=== PATIENT | male | born 1965 | race Caucasian/White ===

== ENCOUNTER 2016-06-28 10:00 | Outpatient (CLI) | payer OTHER | END 2016-06-28 10:01 | disposition home or self-care (01) | DX: E04.1 Nontoxic single thyroid nodule (principal); Z92.3 Personal history of irradiation; R05 Cough ==

== ENCOUNTER 2016-07-07 09:16 | Outpatient (CLI) | payer OTHER | END 2016-07-07 09:17 | disposition home or self-care (01) | DX: R05 Cough (principal) ==

== ENCOUNTER 2017-03-02 07:12 | Outpatient (CLI) | payer OTHER ==
[2017-03-02 19:10] LABS: BASOPHILS % (AUTO) 0.5 %; EOSINOPHILS % (AUTO) 0.6 %; HCT - HEMATOCRIT 45.7 % (42.0-52.0); HGB - HEMOGLOBIN 15.7 g/dL (14.0-18.0); LYMPHOCYTES # (AUTO) 1.9 10^3/uL (1.5-3.5); LYMPHOCYTES % (AUTO) 31.3 %; MEAN CORPUSCULAR HEMOGLOBIN 31.6 pg (27.0-31.0); MEAN CORPUSCULAR HGB CONC 34.4 g/dL (32.0-36.0); MEAN CORPUSCULAR VOLUME 91.8 fL (80.0-94.0); MEAN PLATELET VOLUME 10.6 fL (7.4-11.4); MONOCYTES # (AUTO) 0.3 10^3/uL (0.0-1.0); MONOCYTES % (AUTO) 5.1 %; NEUTROPHILS # (AUTO) 3.7 10^3/uL (1.5-6.6); NEUTROPHILS % (AUTO) 62.5 %; RED BLOOD COUNT 4.98 10^6/uL (4.70-6.10); RED CELL DISTRIBUTION WIDTH 13.9 % (12.0-15.0)
[2017-03-02 19:37] LABS: ALBUMIN/GLOBULIN RATIO 1.9 (1.0-2.2); BILIRUBIN,TOTAL 1.2 mg/dL (0.2-1.0); BUN - BLOOD UREA NITROGEN 21 mg/dL (6-20); CALCIUM 9.1 mg/dL (8.5-10.3); CARBON DIOXIDE - CO2 30 mmol/L (21-32); CHLORIDE 101 mmol/L (101-111); CHOL/HDL RATIO 4.2 (<5.0); CHOLESTEROL 229 mg/dL; CREATININE 0.9 mg/dL (0.6-1.2); GFR - MDRD 89 (>89); GLUCOSE 103 mg/dL (70-100); HDL CHOLESTEROL 55 mg/dL; LDL/HDL RATIO 2.9 (<3.6); SODIUM 137 mmol/L (135-145); TOTAL PROTEIN 6.6 g/dL (6.7-8.2); TRIGLYCERIDES 68 mg/dL; VLDL CHOLESTEROL 14 mg/dL
== END 2017-03-02 07:13 | disposition home or self-care (01) ==
LOC: LAB.WCP 07:12
PROVIDERS: ATTEND Family Medicine
DX: Z00.00 Encounter for general adult medical examination without abnormal findings (principal); Z12.5 Encounter for screening for malignant neoplasm of prostate; E04.1 Nontoxic single thyroid nodule
CPT/HCPCS: 36415; 80050; 80061; 84153

== ENCOUNTER 2017-03-21 16:28 | Outpatient (CLI) | payer OTHER ==
--- NOTE | 2017-03-22 15:35 | MRI Report ---
EXAM: LEFT ANKLE/HINDFOOT MRI WITHOUT CONTRAST EXAM DATE: 03/21/2017 05:16 PM. CLINICAL HISTORY: Chronic lateral left ankle pain. COMPARISON: Radiographs 03/01/2017. TECHNIQUE: Multiplanar, multisequence T1-weighted and fluid-sensitive sequences of the ankle/hindfoot without contrast. Other: None. FINDINGS: Bones and articular surfaces: No significant ankle joint effusion. Ill-defined osteochondral lesion a t the posteromedial dome of the talus. There is an area of cartilage thinning and fissuring with defo rmity and deficiency of the subchondral bone plate, patchy subchondral edema and some subchondral cys t formation measuring approximately 1.3 cm anteroposterior and 1.0 cm medial to lateral. No obvious d isplaced osteochondral fragment at this time. Ossified portion of a small osteochondral fragment in p lace within the osteochondral lesion approximately 0.6 x 0.5 x 0.15 cm. There is some cartilage thinn ing and fissuring at the calcaneal aspect of the calcaneocuboid joint. Patchy foci of lobulated high T2 signal in the distal calcaneus may represent combination of small intraosseous ganglia as well as distal subchondral cyst formation. Subtalar and talonavicular joints appear normal. Naviculocuneiform and tarsometatarsal joints appear within normal limits. Musculotendinous structures: The Achilles tendon and plantar fascia appear intact. Visualized tibiali s posterior tendon demonstrates small volume of associated fluid. Remaining anterior, posterior and p osterolateral ankle tendons appear normal with no additional significant tendinosis or tenosynovitis. Ligaments: The anterior and posterior talofibular, calcaneofibular and deltoid ligaments appear intac t. Some edema and decreased fat signal within the tarsal sinus. IMPRESSION: 1. Osteochondral lesion at the posteromedial dome of the talus approximately 1.0 x 1.3 cm. 2. 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 3. 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 4. Mild tibialis posterior tenosynovitis. [facility] MUSCULOSKELETAL [facility]IOLOGY SECTION Referring Provider Line: [phone] SITE ID: [id number]
== END 2017-03-21 16:29 | disposition home or self-care (01) ==
LOC: DI 16:28
PROVIDERS: ATTEND Family Medicine
DX: M89.9 Disorder of bone, unspecified (principal); M19.072 Primary osteoarthritis, left ankle and foot; M65.872 Other synovitis and tenosynovitis, left ankle and foot

== ENCOUNTER 2017-07-07 06:55 | Day surgery (SDC) | payer OTHER ==
--- NOTE | 2017-07-07 07:38 | HISTORY & PHYSICAL EXAMINATION ---
HPI - History of Present Illness HPI Comment/Other: Marbin is here today for surviellence EGD. 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 He takes 20 mg Omeprazole daily. He denies dysphagia or odynaphagia. He does not smoke currently but quite 18 years ago and did smoke a pack per day for 20 years. He drinks alcohol approximately 6 days per week - 2 cocktails at a time. He is slightly overweight. His father was diagnosed with esophageal cancer in his late 70's. PMH/PSH - Past Medical History Cardiovascular: positive: Murmur Respiratory: positive: Sleep apnea, CPAP use Endocrine/Autoimmune: positive: None GI: positive: GERD : positive: None HEENT: positive: Chronic hearing loss Psych: positive: None Musculoskeletal: positive: Chronic back pain Derm: positive: None MRSA Hx?: No - Past Surgical History General: positive: EGD Ortho: positive: Shoulder arthroplasty, Other Social & Family Hx - Social History ETOH Use: Wine, Beer, Liquor Meds/Allgy - Home Medications Home Medications: Ambulatory Orders Medication Instructions Recorded Confirmed Esomeprazole Magnesium [Nexium] 1 tab PO DAILY 02/23/16 02/23/16 Ibuprofen [Motrin] 800 mg PO 07/07/17 - Allergies Allergies/Adverse Reactions: Allergies Allergy/AdvReac Type Severity Reaction Status Date / Time Sulfa (Sulfonamide Allergy Unknown Verified 02/23/16 12:33 Antibiotics) Review of Systems - Constitutional Constitutional: denies: Weight loss - Cardiovascular Cariovascular: denies: Palpitations - Respiratory Respiratory: reports: Snoring - Gastrointestinal Gastrointestinal: denies: Abdominal pain - Psychiatric Psychiatric: denies: Depression - Hematologic/Lymphatic Hematologic/Lymphatic: denies: Anemia Exam - Vital Signs Vital Signs: Vital Signs x48h Temp Pulse Resp BP Pulse Ox 07/07/17 07:05 36.2 C L 59 L 16 110/73 97 - Physical Exam General Appearance: positive: No acute distress Respiratory: positive: No respiratory distress, Breath sounds nml Cardiovascular: positive: Regular rate & rhythm Abdomen: positive: Non-tender, No distention Extremities: positive: No pedal edema Neurologic/Psychiatric: positive: Oriented x3 Impression/Plan - Problem List Problem List: History of Quintana's esophagus Will proceed with EGD. Patient understands the procedure and potential risks involved and agrees to proceed.
[2017-07-07] MEDS ORDERED: BENZOCAINE/TETRACAINE/BUTAMBEN SPRAY 56 GM TOP ONE ×2 (08:22→08:40)
[2017-07-07] MEDS ORDERED: LACTATED RINGERS 1,000 ML IV ONE (08:46)
[2017-07-07 09:57] VITALS: BP 114/59
== END 2017-07-07 06:56 | disposition home or self-care (01) ==
LOC: SDS 06:55
PROVIDERS: ATTEND Surgery
PROC: 0DB38ZX Excision of Lower Esophagus, Via Natural or Artificial Opening Endoscopic, Diagnostic (ICD-10-PCS; principal; 2017-07-07 08:15)
DX: K44.9 Diaphragmatic hernia without obstruction or gangrene (principal); Z87.891 Personal history of nicotine dependence; Z80.0 Family history of malignant neoplasm of digestive organs
CPT/HCPCS: 43239; A9270; J7120

== ENCOUNTER 2018-01-31 15:46 | Emergency (ER) | payer OTHER ==
[2018-01-31 16:32] LABS: BASOPHILS % (AUTO) 0.3 %; EOSINOPHILS % (AUTO) 0.1 %; HGB - HEMOGLOBIN 15.6 g/dL (14.0-18.0); LYMPHOCYTES # (AUTO) 0.8 10^3/uL (1.5-3.5); LYMPHOCYTES % (AUTO) 7.9 %; MEAN CORPUSCULAR HEMOGLOBIN 31.6 pg (27.0-31.0); MEAN CORPUSCULAR HGB CONC 35.6 g/dL (32.0-36.0); MEAN CORPUSCULAR VOLUME 88.9 fL (80.0-94.0); MEAN PLATELET VOLUME 8.8 fL (7.4-11.4); MONOCYTES # (AUTO) 0.3 10^3/uL (0.0-1.0); MONOCYTES % (AUTO) 3.5 %; NEUTROPHILS # (AUTO) 8.6 10^3/uL (1.5-6.6); NEUTROPHILS % (AUTO) 88.2 %; PLT - PLATELET COUNT 181 10^3/uL (130-450); RED BLOOD COUNT 4.92 10^6/uL (4.70-6.10); RED CELL DISTRIBUTION WIDTH 14.1 % (12.0-15.0); WHITE BLOOD COUNT 9.8 x10^3/uL (4.8-10.8)
[2018-01-31 16:33] LABS: ALBUMIN 4.1 g/dL (3.2-5.5); ALBUMIN/GLOBULIN RATIO 1.6 (1.0-2.2); BILIRUBIN,TOTAL 1.5 mg/dL (0.2-1.0); CALCIUM 9.1 mg/dL (8.5-10.3); CREATININE 1.3 mg/dL (0.6-1.2); TOTAL PROTEIN 6.6 g/dL (6.7-8.2)
--- NOTE | 2018-01-31 16:49 | ED Physician Documentation ---
PD HPI CHEST PAIN - Stated complaint Stated Complaint: CP/SOA - Chief complaint Chief Complaint: Cardiac - History obtained from History obtained from: Patient, Family - History of Present Illness Timing - onset: Other (several weeks) Timing - onset during: Rest Timing - duration: Minutes (a few seconds to a few minutes) Timing - details: Abrupt onset, Now resolved, Intermittant Pain level max: 3 Pain level now: 0 Quality: Pressure, Tightness, Sharp Location: Substernal, Left chest Radiation: Other (non-radiating) Improved by: Nothing. No: Rest, Oxygen, Nitro, ASA, Antacids, Other medication Worsened by: No: Exertion, Inspiration, Eating, Movement, Palpation, Position Associated symptoms: No: Shortness of air, Diaphoresis, Nausea, Vomiting, Feeling faint / dizzy, General Weakness Recently seen: Clinic (Sent from clinic for to have a troponin drawn) Review of Systems Constitutional: denies: Fever, Chills Nose: denies: Rhinorrhea / runny nose, Congestion Throat: denies: Sore throat Respiratory: denies: Cough, Wheezing GI: denies: Vomiting, Diarrhea Skin: denies: Rash PD PAST MEDICAL HISTORY - Past Medical History Cardiovascular: Murmur Respiratory: Sleep apnea, CPAP use Endocrine/Autoimmune: None GI: GERD : None HEENT: Chronic hearing loss Psych: None Musculoskeletal: Chronic back pain Derm: None - Past Surgical History Past Surgical History: Yes General: EGD Ortho: Shoulder arthroplasty, Other - Present Medications Home Medications: Ambulatory Orders Medication Instructions Recorded Confirmed Esomeprazole Magnesium [Nexium] 1 tab PO DAILY 02/23/16 01/31/18 Ibuprofen [Motrin] 800 mg PO DAILY 07/07/17 01/31/18 predniSONE [Prednisone] 30 mg PO DAILY 01/31/18 01/31/18 - Allergies Allergies/Adverse Reactions: Allergies Allergy/AdvReac Type Severity Reaction Status Date / Time Sulfa (Sulfonamide Allergy Unknown Verified 01/31/18 16:00 Antibiotics) - Social History Smoking Status: Former smoker Does the pt drink ETOH?: Yes Does the pt have substance abuse?: No - Immunizations Immunizations are current?: Yes PD ED PE NORMAL - Vitals Vital signs reviewed: Yes - General General: Alert and oriented X 3, No acute distress - HEENT HEENT: Moist mucous membranes - Neck Neck: Supple, no meningeal sign - Cardiac Cardiac: RRR, Strong equal pulses - Respiratory Respiratory: No respiratory distress, Clear bilaterally - Abdomen Abdomen: Soft, Non tender - Derm Derm: Warm and dry - Extremities Extremities: No edema, No calf tenderness / cord - Neuro Neuro: Alert and oriented X 3 - Psych Psych: Normal mood, Normal affect Results - Vitals Vitals: Vital Signs - 24 hr 01/31/18 01/31/18 01/31/18 15:50 16:30 18:00 Temperature 36.2 C L Heart Rate 75 70 70 Respiratory 18 13 16 Rate Blood Pressure 119/76 126/93 H 126/87 H O2 Saturation 100 97 95 Oxygen O2 Source Room air - EKG (time done) 1553 Rate: Rate (enter#) (71) Rhythm: NSR Rosamond: LAD Intervals: Normal AR QRS: Normal Ischemia: Normal ST segments - Labs Labs: Laboratory Tests 01/31/18 01/31/18 01/31/18 16:05 16:05 16:05 WBC 9.8 RBC 4.92 Hgb 15.6 Hct 43.7 MCV 88.9 MCH 31.6 H MCHC 35.6 RDW 14.1 Plt Count 181 MPV 8.8 Neut # (Auto) 8.6 H Lymph # (Auto) 0.8 L Upson # (Auto) 0.3 Eos # (Auto) 0.0 Baso # (Auto) 0.0 Absolute Nucleated RBC 0.00 Nucleated RBC % 0.0 Sodium 137 Potassium 4.5 Chloride 104 Carbon Dioxide 25 Anion Gap 8.0 BUN 22 H Creatinine 1.3 H Estimated GFR (MDRD) 58 L Glucose 144 H Calcium 9.1 Total Bilirubin 1.5 H AST 17 ALT 19 Alkaline Phosphatase 39 L Troponin I < 0.04 Total Protein 6.6 L Albumin 4.1 Globulin 2.5 Albumin/Globulin Ratio 1.6 Lipase 40 01/31/18 17:53 WBC RBC Hgb Hct MCV MCH MCHC RDW Plt Count MPV Neut # (Auto) Lymph # (Auto) Upson # (Auto) Eos # (Auto) Baso # (Auto) Absolute Nucleated RBC Nucleated RBC % Sodium Potassium Chloride Carbon Dioxide Anion Gap BUN Creatinine Estimated GFR (MDRD) Glucose Calcium Total Bilirubin AST ALT Alkaline Phosphatase Troponin I < 0.04 Total Protein Albumin Globulin Albumin/Globulin Ratio Lipase - Rads (name of study) cxr Radiology: Prelim report reviewed, EMP read contemporaneously, See rad report ( no acute findings) PD MEDICAL DECISION MAKING - ED course Complexity details: reviewed results, re-evaluated patient, considered differential (No ST elevation AL, no aortic dissection, no PE, no tension pneumothorax, no aortic aneurysm), d/w patient, d/w family ED course: Patient is a 52-year-old gentleman with atypical chest pain over the past week. Negative troponin 2. No acute findings on EKG or chest x-ray. Does not appear cardiac at this time. We will have him follow-up with his doctor for further evaluation and care. Patient and family counseled regarding signs and symptoms for which I believe and urgent re-evaluation would be necessary. Patient with good understanding of and agreement to plan and is comfortable going home at this time This document was made in part using voice recognition software. While efforts are made to proofread this document, sound alike and grammatical errors may occur. - Sepsis Event Vital Signs: Vital Signs - 24 hr 01/31/18 01/31/18 01/31/18 15:50 16:30 18:00 Temperature 36.2 C L Heart Rate 75 70 70 Respiratory 18 13 16 Rate Blood Pressure 119/76 126/93 H 126/87 H O2 Saturation 100 97 95 Oxygen O2 Source Room air Departure - Departure Disposition: 01 Home, Self Care Clinical Impression: Chest pain Qualifiers: Chest pain type: unspecified Qualified Code(s): R07.9 - Chest pain, unspecified Condition: Good Instructions: ED Chest Pain Atypical Unkn Cause Follow-Up: Richi Bhatti DO [Primary Care Provider] - Within 1 week Comments: Your tests are normal today. Return if you worsen. Follow-up with your doctor for further care. Discharge Date/Time: 01/31/18 18:24
--- NOTE | 2018-01-31 17:04 | XRAY Report ---
Procedure Date: 01/31/2018 Accession Number: [id number] / [id number] Procedure: XR - Chest 2 View X-Ray CPT Code: 02535 FULL RESULT: EXAM: CHEST RADIOGRAPHY EXAM DATE: 01/31/2018 04:39 PM. CLINICAL HISTORY: Chest pain x 1 week. COMPARISON: 06/28/2016 TECHNIQUE: 2 views. FINDINGS: Lungs/Pleura: No focal opacities evident. No pleural effusion. No pneumothorax. Normal volumes. Mediastinum: Heart and mediastinal contours are unremarkable. Other: Negative bony structures IMPRESSION: Negative 2-view chest radiography for acute findings or significant change since 06/28/2016. [facility]
[2018-01-31 18:08] VITALS: BP 126/87
== END 2018-01-31 18:24 | disposition home or self-care (01) ==
LOC: ED 15:46
DX: R07.9 Chest pain, unspecified (principal); Z87.891 Personal history of nicotine dependence
CPT/HCPCS: 36415; 71046; 80053; 83690; 84484; 85025; 93005; 99283

== ENCOUNTER 2018-03-17 03:46 | Outpatient (CLI) | payer OTHER | END 2018-03-17 03:47 | disposition critical access hospital (66) | LOC: EMS 03:46 | PROVIDERS: ATTEND Surgery | DX: R10.9 Unspecified abdominal pain (principal); R11.0 Nausea; W19.XXXA Unspecified fall, initial encounter; Y92.002 Bathroom of unspecified non-institutional (private) residence as the place of occurrence of the external cause | CPT/HCPCS: A0425; A0429 ==

== ENCOUNTER 2018-03-17 03:59 | Emergency (ER) | payer OTHER ==
--- NOTE | 2018-03-17 04:21 | ED Physician Documentation ---
History of Present Illness - Stated complaint Stated Complaint: WEAKNESS - Chief complaint Chief Complaint: General - History obtained from History obtained from: Patient - History of Present Illness Timing: Today - Additonal information Additional information: patient is a 52 year old male with a history of polymyalgia rheumatica on prednisone and methotrexate who is presenting to the emergency department for nausea, generalized weakness and diaphoresis. Patient states that he woke up from sleep feeling nauseated. He went to take off his cpap and was sweating. Patient got up to go to the bathroom and felt like he might pass out. patient hit his head on the door frame and then sat down in front of the toilet. patient states he was sweating profusely at that time. patient then had a bowel movement and states that it felt like it could be diarrhea. patient states that he felt queasy after that episode. family called ems. patient refused zofran enroute stating his nausea was not that bad. Patient reports that his last meal was at a [employer] restaurant this evening. Review of Systems Constitutional: reports: Sweats Eyes: denies: Decreased vision, Photophobia Cardiac: denies: Chest pain / pressure PD PAST MEDICAL HISTORY - Past Medical History Cardiovascular: Murmur Respiratory: Sleep apnea, CPAP use Endocrine/Autoimmune: None GI: GERD : None HEENT: Chronic hearing loss Psych: None Musculoskeletal: Chronic back pain Derm: None - Past Surgical History Past Surgical History: Yes General: EGD Ortho: Shoulder arthroplasty, Other - Present Medications Home Medications: Ambulatory Orders Medication Instructions Recorded Confirmed Esomeprazole Magnesium [Nexium] 1 tab PO DAILY 02/23/16 01/31/18 Ibuprofen [Motrin] 800 mg PO DAILY 07/07/17 01/31/18 predniSONE [Prednisone] 30 mg PO DAILY 01/31/18 01/31/18 Ondansetron Odt [Zofran] 4 mg TL Q6H PRN #14 tablet 03/17/18 - Allergies Allergies/Adverse Reactions: Allergies Allergy/AdvReac Type Severity Reaction Status Date / Time Sulfa (Sulfonamide Allergy Unknown Verified 03/17/18 04:06 Antibiotics) - Social History Smoking Status: Former smoker Does the pt drink ETOH?: Yes Does the pt have substance abuse?: No - Immunizations Immunizations are current?: Yes PD ED PE NORMAL - General General: Alert and oriented X 3, No acute distress - HEENT HEENT: Atraumatic - Cardiac Cardiac: RRR - Respiratory Respiratory: No respiratory distress - Abdomen Abdomen: Soft, Non distended - Derm Derm: Normal color, Warm and dry - Extremities Extremities: No deformity - Neuro Neuro: Alert and oriented X 3, systems coordinator 2-12 intact, No motor deficit, Normal speech Eye Opening: Spontaneous Motor: Obeys Commands Verbal: Oriented GCS Score: 15 Results - Vitals Vitals: Vital Signs - 24 hr 03/17/18 04:02 Temperature 36.1 C L Heart Rate 68 Respiratory 10 L Rate Blood Pressure 119/81 H O2 Saturation 98 Oxygen O2 Source Room air - EKG (time done) 0404 Rate: Rate (enter#) (65) Rhythm: NSR Irvona: Normal Intervals: Normal GA QRS: Normal Ischemia: ST elevation c/w repol Compare to prior EKG: Unchanged from prior EKG PD MEDICAL DECISION MAKING - ED course Complexity details: reviewed old records, reviewed results, re-evaluated patient, considered differential, d/w patient ED course: Patient was seen and examined at bedside. patient was well appearing and continued to state that he did not need any zofran. ekg was performed and was unchanged from his previous ekg. labs were drawn. when patient's diagnostics came back they were all within normal limits. Patient remained well appearing with only some minor "queasiness" Patient required no further inpatient work up at this time and was stable for discharge with outpatient follow up. - Sepsis Event Vital Signs: Vital Signs - 24 hr 03/17/18 04:02 Temperature 36.1 C L Heart Rate 68 Respiratory 10 L Rate Blood Pressure 119/81 H O2 Saturation 98 Oxygen O2 Source Room air Departure - Departure Disposition: 01 Home, Self Care Clinical Impression: Syncope, near Condition: Good Instructions: ED Near Syncope Unkn Follow-Up: primary,care provider [Other] - As Needed Prescriptions: Ondansetron Odt [Zofran] 4 mg TL Q6H PRN #14 tablet PRN Reason: Nausea / Vomiting Comments: Your diagnostics today were within normal limits. It is difficult to say what exactly happened. It could be food poisoning or vaso vagal near syncope. Make sure you take the zofran for nausea and stay well hydrated. You should follow up with your doctor if your symptoms persist. You may return to the emergency at any time for new, worsening or uncontrollable symptoms.
[2018-03-17 04:30] LABS: BASOPHILS % (AUTO) 0.3 %; EOSINOPHILS % (AUTO) 0.3 %; HGB - HEMOGLOBIN 15.1 g/dL (14.0-18.0); LYMPHOCYTES # (AUTO) 1.9 10^3/uL (1.5-3.5); LYMPHOCYTES % (AUTO) 25.3 %; MEAN CORPUSCULAR HEMOGLOBIN 31.6 pg (27.0-31.0); MEAN CORPUSCULAR VOLUME 90.2 fL (80.0-94.0); MEAN PLATELET VOLUME 8.4 fL (7.4-11.4); MONOCYTES # (AUTO) 0.4 10^3/uL (0.0-1.0); MONOCYTES % (AUTO) 5.8 %; NEUTROPHILS # (AUTO) 5.1 10^3/uL (1.5-6.6); NEUTROPHILS % (AUTO) 68.3 %; PLT - PLATELET COUNT 161 10^3/uL (130-450); RED BLOOD COUNT 4.79 10^6/uL (4.70-6.10); RED CELL DISTRIBUTION WIDTH 14.2 % (12.0-15.0); WHITE BLOOD COUNT 7.5 x10^3/uL (4.8-10.8)
[2018-03-17 04:37] LABS: ALBUMIN 3.8 g/dL (3.2-5.5); ALBUMIN/GLOBULIN RATIO 1.5 (1.0-2.2); BILIRUBIN,TOTAL 0.8 mg/dL (0.2-1.0); CALCIUM 8.5 mg/dL (8.5-10.3); TOTAL PROTEIN 6.3 g/dL (6.7-8.2)
[2018-03-17 05:13] VITALS: BP 123/77
== END 2018-03-17 05:13 | disposition home or self-care (01) ==
LOC: EDUNIT# → ED 03:59
DX: R55 Syncope and collapse (principal); M35.3 Polymyalgia rheumatica; Z92.241 Personal history of systemic steroid therapy
CPT/HCPCS: 36415; 80053; 83690; 84484; 85025; 87275; 87276; 93005; 99284

== ENCOUNTER 2018-04-10 09:19 | Outpatient (CLI) | payer OTHER | END 2018-04-10 09:20 | disposition home or self-care (01) | LOC: DI 09:19 | PROVIDERS: ATTEND Family Medicine | DX: R55 Syncope and collapse (principal); R07.89 Other chest pain; I51.7 Cardiomegaly | CPT/HCPCS: 93306 ==

== ENCOUNTER 2018-07-01 09:13 | Outpatient (CLI) | payer OTHER | END 2018-07-01 09:14 | disposition home or self-care (01) | LOC: DI 09:13 | PROVIDERS: ATTEND Internal Medicine Cardiovascular Disease | DX: Q24.8 Other specified congenital malformations of heart (principal); R55 Syncope and collapse; I51.7 Cardiomegaly | CPT/HCPCS: 93308 ==

== ENCOUNTER 2018-07-19 08:54 | Outpatient (CLI) | payer OTHER ==
[2018-07-19] MEDS ORDERED: REGADENOSON 0.4 MG/5 ML SYRINGE IVP ONE ×2 (10:13→11:53)
--- NOTE | 2018-07-19 12:32 | CARDIAC PROCEDURE NOTE ---
DATE OF SERVICE: 07/19/2018 Physician: Andria De León MD, [facility] INDICATION: Syncope. CARDIAC RISK FACTORS 1. Male gender. 2. Family history of heart disease. PROCEDURE: After signing informed consent, the patient underwent a Lexiscan stress test with nuclear myocardial perfusion imaging. RESTING HEART RATE: 63. Peak heart rate: 83. RESTING BLOOD PRESSURE: 132/80. Peak blood pressure: 160/70. Lexiscan was infused per protocol. The patient developed flushing and mild shortness of breath that resolved spontaneously after 4 minutes. The patient had no chest pain or nausea. RESTING EKG: Normal sinus rhythm, left atrial enlargement, left anterior fascicular block, poor R-wave progression. EKG AT [facility]: No new ST segment or T-wave changes. SUMMARY 1. Abnormal resting EKG. 2. No ischemic changes by EKG criteria on this pharmaceutical stress test. 3. Nuclear images reported separately. cc: Balbir Bonilla MD TD: 07/19/2018 12:05 MTDD
--- NOTE | 2018-07-19 16:36 | Nuclear Medicine Report ---
Reason: OUTFLOW TRACT OBSTRUCTION, SYNCOPE Procedure Date: 07/19/2018 Accession Number: [id number] / [id number] Procedure: NM - Myocardial Perfusion STR/RST CPT Code: FULL RESULT: EXAM: SINGLE-ISOTOPE PHARMACOLOGICAL STRESS TEST WITH REGADENOSON. SINGLE-ISOTOPE AND ONE-DAY REST/STRESS MYOCARDIAL PERFUSION SCANS WITH TOMOGRAPHIC IMAGING, QUANTITATIVE ANALYSIS, WALL MOTION ANALYSIS AND CALCULATION OF EJECTION FRACTION. EXAM DATE: 07/19/2018 04:09 PM. CLINICAL HISTORY: OUTFLOW TRACT OBSTRUCTION, SYNCOPE. COMPARISON: None available. TECHNIQUE: After the intravenous administration of 9.9 mCi of Tc-99m sestamibi, a rest myocardial perfusion scan was done with tomography. Motion correction was applied when appropriate. After an appropriate delay, pharmacological stress was performed with the infusion of 0.4 mg regadenoson per protocol. According to protocol, 41.4 mCi of Tc-99m sestamibi was injected for stress myocardial perfusion scan. Motion correction was applied when appropriate. Gated tomographic images were obtained for wall motion analysis and computation of left ventricular ejection fraction. FINDINGS: On visual analysis, there are partially fixed and partially reversible perfusion defects in the anterior and inferolateral lny. Computer analysis. Summed stress score 11 Summed rest score 7 Summed difference score 4 Wall motion analysis demonstrates inferoseptal hypokinesis. The left ventricular end-diastolic volume is 92 cc. The left ventricular end-systolic volume is 28 cc. The left ventricular ejection fraction is calculated to be 70%. IMPRESSION: 1. Moderate severity partially fixed and partially reversible anterior and inferolateral perfusion defects. 2. Left ventricular ejection fraction of 70%. 3. Inferoseptal hypokinesis. 4. Normal left ventricular cavity size, no change with stress. 5. Based on computer analysis, moderately abnormal study with mild ischemia. [facility]
== END 2018-07-19 08:55 | disposition home or self-care (01) ==
LOC: DI 08:54
PROVIDERS: ATTEND Internal Medicine Cardiovascular Disease
DX: Q24.8 Other specified congenital malformations of heart (principal); R55 Syncope and collapse; R06.02 Shortness of breath; R94.31 Abnormal electrocardiogram [ECG] [EKG]
CPT/HCPCS: 78452; 93017; A9500; J2785

== ENCOUNTER 2019-04-27 10:35 | Outpatient (CLI) | payer OTHER | END 2019-04-27 23:59 | disposition home or self-care (01) | LOC: LAB.WCP 10:35 | PROVIDERS: ATTEND Family Medicine | DX: M35.3 Polymyalgia rheumatica (principal) | CPT/HCPCS: 36415; 85651; 86140 ==

== ENCOUNTER 2019-09-22 12:53 | Emergency (ER) | payer OTHER ==
--- NOTE | 2019-09-22 13:01 | ED Physician Documentation ---
PD HPI UPPER EXT INJURY - Stated complaint Stated Complaint: RT SHOULDER PX - Chief complaint Chief Complaint: Trauma Ext - History obtained from History obtained from: Patient - History of Present Illness Location: Right, Shoulder Type of injury: Fall (He was changed sign limbs from a tree while up on a ladder. He reached for a branch with the chainsaw and the ladder rocked and he fell down about 15 feet landing on some branches on his right shoulder. He denies injury to the head or neck. He has some mild tenderness in the lateral ribs but no pain with breathing. His main injury is the right shoulder along the collarbone and scapula.) Where injury occurred: Home Timing - onset: How many hours ago (1), Today Timing - details: Abrupt onset, Still present Worsened by: Moving, Palpating Associated symptoms: Swelling (right hand, but feels he might have struck that separately.). No: Weakness, Numbness Similar symptoms before: Has not had sx before Review of Systems Cardiac: denies: Chest pain / pressure Respiratory: denies: Dyspnea GI: denies: Abdominal Pain Skin: denies: Abrasion (s), Laceration (s) Musculoskeletal: denies: Neck pain, Back pain Neurologic: denies: Focal weakness, Numbness, Altered mental status, Headache, LOC PD PAST MEDICAL HISTORY - Past Medical History Cardiovascular: Murmur Respiratory: Sleep apnea, CPAP use Endocrine/Autoimmune: None GI: GERD : None HEENT: Chronic hearing loss Psych: None Musculoskeletal: Chronic back pain Derm: None - Past Surgical History Past Surgical History: Yes General: EGD Ortho: Shoulder arthroplasty, Other - Present Medications Home Medications: Ambulatory Orders Medication Instructions Recorded Confirmed Esomeprazole Magnesium [Nexium] 1 tab PO DAILY 02/23/16 01/31/18 Ibuprofen [Motrin] 800 mg PO DAILY 07/07/17 01/31/18 predniSONE [Prednisone] 30 mg PO DAILY 01/31/18 01/31/18 Ondansetron Odt [Zofran] 4 mg TL Q6H PRN #14 tablet 03/17/18 Hydrocodone/Acetaminophen 1 each PO Q6H PRN #14 tablet 09/22/19 [Hydrocodon-Acetaminophen 5-325] Meloxicam [Mobic] 7.5 mg PO BID PRN #20 tablet 09/22/19 Tizanidine HCl 4 mg PO TID PRN #25 capsule 09/22/19 - Allergies Allergies/Adverse Reactions: Allergies Allergy/AdvReac Type Severity Reaction Status Date / Time Sulfa (Sulfonamide Allergy Unknown Verified 09/22/19 12:55 Antibiotics) - Social History Does the pt smoke?: No Smoking Status: Former smoker Does the pt drink ETOH?: Yes Does the pt have substance abuse?: No - Immunizations Immunizations are current?: Yes - POLST Patient has POLST: No PD ED PE NORMAL - Vitals Vital signs reviewed: Yes - General General: Alert and oriented X 3, Well developed/nourished, Other (He is guarding range of motion of the right shoulder.) - HEENT HEENT: Atraumatic - Neck Neck: Supple, no meningeal sign, No bony TTP, No adenopathy - Cardiac Cardiac: RRR, No murmur - Respiratory Respiratory: Clear bilaterally, Other (Mild chest wall tenderness along the mid axillary line on the right side. No crepitance. He is able to take a good deep breath without hurting.) - Derm Derm: Normal color, Warm and dry - Extremities Extremities: Other (There is a little bit of swelling in the right hand and dorsum wrist, with faint bruising, but no bony tenderness nor deformity. He has good automation technologist. There is tenderness along the AC joint and the distal clavicle and also on the posterior suprascapular area. Palpation of the inferior aspect of the scapula and rotating the scapula do not cause pain. There is no tenderness in the proximal humerus per se. Limited range of motion due to discomfort. There is no palpable dislocation.) - Neuro Neuro: Alert and oriented X 3, No motor deficit, No sensory deficit Eye Opening: Spontaneous Motor: Obeys Commands Verbal: Oriented GCS Score: 15 Results - Vitals Vitals: Vital Signs - 24 hr 09/22/19 12:56 Temperature 36.5 C Heart Rate 63 Respiratory 16 Rate Blood Pressure 123/86 H O2 Saturation 98 Oxygen O2 Source Room air - Rads (name of study) right shoulder Radiology: Prelim report reviewed, EMP read contemporaneously (slight step of the AC, consider mild separation. No noted fractures. ), See rad report PD MEDICAL DECISION MAKING - ED course Complexity details: reviewed results, considered differential, d/w patient Departure - Departure Disposition: 01 Home, Self Care Clinical Impression: Fall from ladder Qualifiers: Encounter type: initial encounter Qualified Code(s): W11.XXXA - Fall on and from ladder, initial encounter Right shoulder strain Qualifiers: Encounter type: initial encounter Qualified Code(s): S46.911A - Strain of unspecified muscle, fascia and tendon at shoulder and upper arm level, right arm, initial encounter Acromioclavicular (AC) joint injury Qualifiers: Encounter type: initial encounter Laterality: right Qualified Code(s): S49.91XA - Unspecified injury of right shoulder and upper arm, initial encounter Condition: Stable Record reviewed to determine appropriate education?: Yes Instructions: ED Sprain AC Joint, ED Sprain Shoulder Follow-Up: Richi Bhatti DO [Primary Care Provider] - Leodan Zuniga DO [Physician No Access] - Prescriptions: Hydrocodone/Acetaminophen [Hydrocodon-Acetaminophen 5-325] 1 each PO Q6H PRN #14 tablet PRN Reason: pain Meloxicam [Mobic] 7.5 mg PO BID PRN #20 tablet PRN Reason: Pain Tizanidine HCl 4 mg PO TID PRN #25 capsule PRN Reason: Spasms Comments: Use the sling for protecting the shoulder motion for several days to a week or 2 as needed for discomfort. Gentle range of motion several times a day however so you do not get stiff in the shoulder joint. Presumably there is some strain of the muscles around the scapula and shoulder there may be some separation of the ligament at the AC joint. No overhead reaching, push pull, heavy lifting for 2 to 3 weeks until it feels well-healed. Anti-inflammatory such as meloxicam naproxen or ibuprofen twice daily for the next several days to week with food. Add Tylenol if needed for pains, or hydrocodone for worse pain. Use tizanidine if needed for muscle stiffness and spasms. Recheck with your primary care or orthopedics if not improving well over the next week to the point of reasonable range of motion without much pain.
[2019-09-22 14:50] VITALS: BP 126/80
--- NOTE | 2019-09-22 15:32 | XRAY Report ---
Reason: fall from ladder Procedure Date: 09/22/2019 Accession Number: [id number] / [id number] Procedure: XR - Shoulder 3 View RT CPT Code: Final Report FULL RESULT: EXAM: RIGHT SHOULDER RADIOGRAPHY EXAM DATE: 09/22/2019 02:16 PM. CLINICAL HISTORY: Fall from ladder. COMPARISON: None. TECHNIQUE: 3 views. FINDINGS: Bones: Normal. No fracture or bone lesion. Joints: No dislocation. Widened acromioclavicular joint. Soft tissues: The visualized hemithorax is unremarkable. No soft tissue calcification. IMPRESSION: Widened acromioclavicular joint, acromioclavicular joint injury versus postop, otherwise unremarkable shoulder radiography. RADIA
== END 2019-09-22 14:50 | disposition home or self-care (01) ==
LOC: ED 12:53
DX: S49.91XA Unspecified injury of right shoulder and upper arm, initial encounter (principal); S46.911A Strain of unspecified muscle, fascia and tendon at shoulder and upper arm level, right arm, initial encounter; W11.XXXA Fall on and from ladder, initial encounter; Y93.H2 Activity, gardening and landscaping; Y92.009 Unspecified place in unspecified non-institutional (private) residence as the place of occurrence of the external cause; Z87.891 Personal history of nicotine dependence
CPT/HCPCS: 99283; 99284

== ENCOUNTER 2019-10-27 17:41 | Emergency (ER) | payer OTHER ==
[2019-10-27] MEDS ORDERED: predniSONE 20 MG TABLET PO STA (18:02)
--- NOTE | 2019-10-27 18:07 | ED Physician Documentation ---
PD HPI SKIN - Stated complaint Stated Complaint: RASH - Chief complaint Chief Complaint: Allergic Rx - History obtained from History obtained from: Patient - History of Present Illness Timing - onset: How many days ago (several days) Timing - duration: Days Timing - details: Gradual onset Pain level max: 0 Pain level now: 0 Location: Bodywide Quality / character: Itchy Improved by: Benadryl Worsened by (comment): COMMENT (nothing) Associated symptoms: No: Fever, Myalgias, Joint pain, Headache, Facial swelling, Dyspnea, Abd pain, N/V/D, Urinary sx Contributing factors: Unknown. No: Exposed to medication, Exposed to food, Exposed to soap / lotion, Exposed to Poison ariana/oak, Insect bite /sting, Recent illness Recently seen: Not recently seen Review of Systems Constitutional: denies: Fever, Chills Cardiac: denies: Chest pain / pressure Respiratory: denies: Cough GI: denies: Nausea, Vomiting, Diarrhea Musculoskeletal: denies: Neck pain, Back pain Neurologic: denies: Headache PD PAST MEDICAL HISTORY - Past Medical History Cardiovascular: Murmur Respiratory: Sleep apnea, CPAP use Endocrine/Autoimmune: None GI: GERD : None HEENT: Chronic hearing loss Psych: None Musculoskeletal: Chronic back pain Derm: None - Past Surgical History Past Surgical History: Yes General: EGD Ortho: Shoulder arthroplasty, Other - Present Medications Home Medications: Ambulatory Orders Medication Instructions Recorded Confirmed Esomeprazole Magnesium [Nexium] 1 tab PO DAILY 02/23/16 01/31/18 Ibuprofen [Motrin] 800 mg PO DAILY 07/07/17 01/31/18 predniSONE [Prednisone] 30 mg PO DAILY 01/31/18 01/31/18 Ondansetron Odt [Zofran] 4 mg TL Q6H PRN #14 tablet 03/17/18 Hydrocodone/Acetaminophen 1 each PO Q6H PRN #14 tablet 09/22/19 [Hydrocodon-Acetaminophen 5-325] Meloxicam [Mobic] 7.5 mg PO BID PRN #20 tablet 09/22/19 Tizanidine HCl 4 mg PO TID PRN #25 capsule 09/22/19 predniSONE [Deltasone] 10 mg PO [id number] #42 tab 10/27/19 - Allergies Allergies/Adverse Reactions: Allergies Allergy/AdvReac Type Severity Reaction Status Date / Time Sulfa (Sulfonamide Allergy Unknown Verified 09/22/19 12:55 Antibiotics) - Social History Does the pt smoke?: No Smoking Status: Never smoker Does the pt drink ETOH?: Yes Does the pt have substance abuse?: No - Immunizations Immunizations are current?: Yes - POLST Patient has POLST: No PD ED PE NORMAL - Vitals Vital signs reviewed: Yes - General General: Alert and oriented X 3, No acute distress - HEENT HEENT: Moist mucous membranes - Neck Neck: Supple, no meningeal sign - Cardiac Cardiac: RRR - Respiratory Respiratory: No respiratory distress, Clear bilaterally - Derm Derm: Warm and dry, Other (Diffuse body wide maculopapular exanthem. Blanches easily. No vesicles. No pustules.) - Neuro Neuro: Alert and oriented X 3 Results - Vitals Vitals: Vital Signs - 24 hr 10/27/19 10/27/19 17:47 18:18 Temperature 36.7 C 36.7 C Heart Rate 67 65 Respiratory 16 16 Rate Blood Pressure 107/57 L 108/62 O2 Saturation 98 99 Oxygen O2 Source Room air PD MEDICAL DECISION MAKING - ED course Complexity details: considered differential, d/w patient ED course: Patient with dermatitis of unclear etiology. Will place on steroids. No airway involvement. Patient counseled regarding signs and symptoms for which I believe and urgent re-evaluation would be necessary. Patient with good understanding of and agreement to plan and is comfortable going home at this time This document was made in part using voice recognition software. While efforts are made to proofread this document, sound alike and grammatical errors may occur. Departure - Departure Disposition: 01 Home, Self Care Clinical Impression: Dermatitis Condition: Good Instructions: ED Dermatitis Non Specific Rash Follow-Up: Richi Bhatti DO [Primary Care Provider] - Within 1 week Prescriptions: predniSONE [Deltasone] 10 mg PO [id number] #42 tab Comments: The cause of your symptoms is unclear today. Take the steroids as prescribed. Return if you worsen. Follow-up with your doctor for further care. Discharge Date/Time: 10/27/19 18:19
[2019-10-27 18:19] VITALS: BP 108/62
== END 2019-10-27 18:19 | disposition home or self-care (01) ==
LOC: ED 17:41
DX: L30.9 Dermatitis, unspecified (principal); R06.02 Shortness of breath
CPT/HCPCS: 71046; 99282; 99284; J7512

== ENCOUNTER 2019-10-27 18:19 | Outpatient (CLI) | payer OTHER ==
--- NOTE | 2019-10-28 03:59 | XRAY Report ---
Reason: SHORTNESS OF BREATH Procedure Date: 10/27/2019 Accession Number: [id number] / [id number] Procedure: XR - Chest 2 View X-Ray CPT Code: 73949 Final Report FULL RESULT: EXAM: CHEST RADIOGRAPHY EXAM DATE: 10/27/2019 06:37 PM. CLINICAL HISTORY: SHORTNESS OF BREATH. COMPARISON: CHEST 2 VIEW 01/31/2018 4:30 PM. TECHNIQUE: 2 views. FINDINGS: Lungs/Pleura: No focal opacities evident. No pleural effusion. No pneumothorax. Normal volumes. Mediastinum: Heart and mediastinal contours are unremarkable. Other: None. IMPRESSION: Normal 2-view chest radiography. RAD[facility]
== END 2019-10-27 18:20 | disposition home or self-care (01) ==
LOC: DI 18:19
PROVIDERS: ATTEND Internal Medicine Cardiovascular Disease
DX: R06.02 Shortness of breath (principal)
CPT/HCPCS: 71046

== ENCOUNTER 2020-04-18 12:05 | Outpatient (CLI) | payer OTHER ==
--- NOTE | 2020-04-18 17:24 | Ultrasound Report ---
PROCEDURE: Chest INDICATIONS: LIPOMA OF CHEST WALL TECHNIQUE: Real-time scanning was performed, and a suitable site was marked by the completion supervisor for thoracentesis to be performed by the referring clinician. COMPARISON: None. FINDINGS: Two hypoechoic solid nodules are seen in the palpable area of concern in the left supraclavicular reg ion, measuring 6 x 5 x 6 mm and 4 x 3 x 4 mm respectively with central vascularity. Findings likely r epresent small lymph nodes, but no definite fatty hilum is seen. IMPRESSION: Two hypoechoic hypervascular solid nodules are seen corresponding to the palpable area of concern in the left supraclavicular region measuring 6 mm and 4 mm respectively. Findings may represent prominen t supraclavicular lymph nodes, without definite fatty hilum. Recommend clinical correlation for recen t infection or any known malignancy. CT chest may be obtained to further evaluate for lymphadenopathy if indicated. Reviewed by: Paul Pate MD on 04/18/2020 5:23 PM PST Approved by: Paul Pate MD on 04/18/2020 5:23 PM PST Station ID: [id number]
== END 2020-04-18 12:06 | disposition home or self-care (01) ==
LOC: DI 12:05
PROVIDERS: ATTEND Physician Assistant
DX: D17.1 Benign lipomatous neoplasm of skin and subcutaneous tissue of trunk (principal)
CPT/HCPCS: 76604

== ENCOUNTER 2020-05-05 08:38 | Outpatient (CLI) | payer OTHER ==
[2020-05-05 08:59] LABS: BASOPHILS % (AUTO) 0.7 %; EOSINOPHILS # (AUTO) 0.1 10^3/uL (0.0-0.7); EOSINOPHILS % (AUTO) 2.6 %; LYMPHOCYTES # (AUTO) 1.8 10^3/uL (1.5-3.5); LYMPHOCYTES % (AUTO) 41.8 %; MEAN CORPUSCULAR HEMOGLOBIN 29.9 pg (27.0-31.0); MEAN CORPUSCULAR HGB CONC 34.8 g/dL (32.0-36.0); MEAN PLATELET VOLUME 10.2 fL (7.4-11.4); MONOCYTES # (AUTO) 0.3 10^3/uL (0.0-1.0); MONOCYTES % (AUTO) 7.7 %; PLT - PLATELET COUNT 169 10^3/uL (130-450); RED BLOOD COUNT 5.01 10^6/uL (4.70-6.10); RED CELL DISTRIBUTION WIDTH 13.4 % (12.0-15.0); WHITE BLOOD COUNT 4.3 x10^3/uL (4.8-10.8)
[2020-05-05 09:29] LABS: ALBUMIN 3.9 g/dL (3.2-5.5); ALBUMIN/GLOBULIN RATIO 1.5 (1.0-2.2); ALKALINE PHOSPHATASE 71 IU/L (42-121); ALT ALANINE AMINOTRANSFERASE 25 IU/L (10-60); AST ASPARTATE AMINOTRANSFERASE 22 IU/L (10-42); BILIRUBIN,TOTAL 1.3 mg/dL (0.2-1.0); BUN - BLOOD UREA NITROGEN 21 mg/dL (6-20); CALCIUM 9.1 mg/dL (8.5-10.3); CARBON DIOXIDE - CO2 28 mmol/L (21-32); CHLORIDE 103 mmol/L (101-111); CHOLESTEROL 165 mg/dL; CREATININE 1.1 mg/dL (0.6-1.2); GLUCOSE 112 mg/dL (70-100); HDL CHOLESTEROL 41 mg/dL; LDL CHOLESTEROL,CALCULATED 110 mg/dL; LDL/HDL RATIO 2.7 (<3.6); SODIUM 139 mmol/L (135-145); TOTAL PROTEIN 6.5 g/dL (6.7-8.2); VLDL CHOLESTEROL 14 mg/dL
== END 2020-05-05 08:39 | disposition home or self-care (01) ==
LOC: LAB 08:38
PROVIDERS: ATTEND Family Medicine
DX: Z12.5 Encounter for screening for malignant neoplasm of prostate (principal); Z95.2 Presence of prosthetic heart valve; I42.2 Other hypertrophic cardiomyopathy; M35.3 Polymyalgia rheumatica; E78.5 Hyperlipidemia, unspecified
CPT/HCPCS: 36415; 80053; 80061; 83721; 84153; 84443; 85025

== ENCOUNTER 2020-11-14 10:32 | Outpatient (CLI) | payer OTHER | END 2020-11-14 10:33 | disposition home or self-care (01) | LOC: LAB 10:32 | PROVIDERS: ATTEND Surgery | DX: Z01.812 Encounter for preprocedural laboratory examination (principal); K22.70 Barrett's esophagus without dysplasia; I42.9 Cardiomyopathy, unspecified; G47.30 Sleep apnea, unspecified; Z20.822 Contact with and (suspected) exposure to COVID-19 ==

== ENCOUNTER 2020-11-18 10:21 | Day surgery (SDC) | payer OTHER ==
[2020-11-18] MEDS ORDERED: LACTATED RINGERS 1,000 ML IV ONE ×2 (10:27→12:19)
[2020-11-18] MEDS ORDERED: LIDOCAINE-MPF 2% 5 ML VIAL ONE (11:14)
[2020-11-18] MEDS ORDERED: PROPOFOL 200 MG/20 ML VIAL IVP ONE (11:14)
[2020-11-18] MEDS ORDERED: KETAMINE 500 MG/10 ML VIAL ONE (11:14)
[2020-11-18] MEDS ORDERED: MIDAZOLAM 2 MG/2 ML VIAL ONE (11:14)
--- NOTE | 2020-11-18 11:15 | ANESTHESIA ---
Pre-Anesthesia VS, & Labs - Diagnosis hx of andres's - Procedure EGD Vital Signs: Temp Pulse Resp BP Pulse Ox 36.2 C L 66 12 104/57 L 99 11/18/20 10:28 11/18/20 10:28 11/18/20 10:28 11/18/20 10:28 11/18/20 10:28 Height: 5 ft 7 in Weight (kg): 84.3 kg Body Mass Index: 29.1 BMI Classification: Overweight - NPO >8 hours Home Medications and Allergies Home Medications: Ambulatory Orders Methotrexate Inj [Methotrexate] 0.4 mg SQ ONCE 11/17/20 Metoprolol Tartrate [Lopressor] 50 mg PO DAILY 11/17/20 Omeprazole [PriLOSEC] 20 mg PO BID 11/17/20 Aspirin [Aspirin EC] 81 mg PO DAILY 11/18/20 Multivitamin 1 each PO BID 11/18/20 Rosuvastatin Calcium [Crestor] 40 mg PO DAILY 11/18/20 Methotrexate Inj [Methotrexate] 0.4 mg SQ ONCE 11/17/20 Metoprolol Tartrate [Lopressor] 50 mg PO DAILY 11/17/20 Omeprazole [PriLOSEC] 20 mg PO BID 11/17/20 Aspirin [Aspirin EC] 81 mg PO DAILY 11/18/20 Multivitamin 1 each PO BID 11/18/20 Rosuvastatin Calcium [Crestor] 40 mg PO DAILY 11/18/20 Allergies/Adverse Reactions: Allergies Allergy/AdvReac Type Severity Reaction Status Date / Time adhesive tape Allergy Rash Verified 11/17/20 14:36 Sulfa (Sulfonamide Allergy Unknown Verified 09/22/19 12:55 Antibiotics) Anes History & Medical History - Anesthetic History Anesthesia Complications: reports: No previous complications Family history of Anesthesia Complications: Denies Family history of Malignant Hyperthermia: Denies - Medical History Cardiovascular: reports: Hypertension, High cholesterol Pulmonary: reports: Sleep apnea, CPAP use Gastrointestinal: reports: GERD, Other Urinary: reports: None Musculoskeletal: reports: Fibromyalgia, Chronic back pain Endocrine/Autoimmune: reports: None Skin: reports: None Smoking Status: Never smoker - Surgical History General: reports: EGD Cardiothoracic: reports: CABG, Valve replacement Orthopedic: reports: Rotator cuff repair, Spine surgery Exam General: Alert Dental: WNL Mouth Openin Fingerbreadth Neck Mobility: Normal Mallampati classification: III Thyromental Distance: less than 4 cm Respiratory: Lungs clear Cardiovascular: Other (pt in bigeminy- baseline) Plan Anesthesia Type: Total IV Consent for Procedure(s) Verified and Reviewed: Yes Code Status: Attempt Resuscitation ASA classification: 3-Severe systemic disease Is this case an emergency?: No
[2020-11-18 12:18] VITALS: BP 102/54
--- NOTE | 2020-11-18 19:18 | ANESTHESIA POST OP EVALUATION ---
Anesthesia Post Eval - Post Anesthesia Eval Vitals: Last Vital Signs Temp 36.3 C L 11/18/20 11:52 Pulse 62 11/18/20 12:14 Resp 17 11/18/20 12:14 BP 102/54 L 11/18/20 12:14 Pulse Ox 99 11/18/20 12:14 CV Function Including HR & BP: Stable Pain Control: Satisfactory Nausea & Vomiting: Negative Mental Status: Baseline Respiratory Status: Airway Patent Hydration Status: Satisfactory Anesthesia Complications: None
== END 2020-11-18 10:22 | disposition home or self-care (01) ==
LOC: SDS 10:21
PROVIDERS: ATTEND Surgery
PROC: 0DB78ZX Excision of Stomach, Pylorus, Via Natural or Artificial Opening Endoscopic, Diagnostic (ICD-10-PCS; 2020-11-18)
PROC: 0DB48ZX Excision of Esophagogastric Junction, Via Natural or Artificial Opening Endoscopic, Diagnostic (ICD-10-PCS; 2020-11-18)
PROC: 0DB98ZX Excision of Duodenum, Via Natural or Artificial Opening Endoscopic, Diagnostic (ICD-10-PCS; principal; 2020-11-18 11:15)
DX: K22.70 Barrett's esophagus without dysplasia (principal); K21.9 Gastro-esophageal reflux disease without esophagitis; K29.50 Unspecified chronic gastritis without bleeding; G47.30 Sleep apnea, unspecified; I42.9 Cardiomyopathy, unspecified; E66.3 Overweight; Z68.29 Body mass index [BMI] 29.0-29.9, adult; Z95.1 Presence of aortocoronary bypass graft
CPT/HCPCS: 43239; J7120

== ENCOUNTER 2021-05-08 15:57 | Outpatient (CLI) | payer OTHER ==
--- NOTE | 2021-05-08 16:21 | XRAY Report ---
PROCEDURE: Lumbar Spine 2 View INDICATIONS: LUMBAR RADICULOPATHY TECHNIQUE: 2 views of the lumbar spine were acquired. COMPARISON: None. FINDINGS: L-SPINE: No acute displaced fracture or malalignment. The vertebral body heights are maintained. Endp late irregularities, most consistent with Schmorl's nodes. Facet arthrosis, most prominent at L5-S1. Mild disc height loss at L5-S1. 5 nonrib-bearing vertebrae. The sacroiliac joints appear patent. SOFT TISSUES: No focal abnormality. IMPRESSION: 1.No acute osseous abnormality of the lumbar spine. Reviewed by: Ander Vo MD on 05/08/2021 4:19 PM PST Approved by: Ander Vo MD on 05/08/2021 4:19 PM PST Station ID: [id number]
== END 2021-05-08 23:59 | disposition home or self-care (01) ==
LOC: DI.N 15:57
PROVIDERS: ATTEND Family Medicine
DX: M47.816 Spondylosis without myelopathy or radiculopathy, lumbar region (principal); M47.817 Spondylosis without myelopathy or radiculopathy, lumbosacral region

== ENCOUNTER 2021-06-03 08:55 | Outpatient (CLI) | payer OTHER ==
--- NOTE | 2021-06-03 11:36 | MRI Report ---
PROCEDURE: Lumbar Spine W/O INDICATIONS: LUMBAR RADICULOPATHY TECHNIQUE: Noncontrast sagittal T1 spin echo and T2 fast echo, sagittal STIR, axial T1 and T2 fast spin echo thr ough the lumbar spine. In cases with scoliosis, additional coronal T2 fast spin echo may be performe d. COMPARISON: None. FINDINGS: Normal lumbar vertebral body height and alignment. No suspicious focal marrow signal abnormality or b one marrow edema. Normal position and appearance of the conus. Prevertebral and paraspinous soft tiss ues appear grossly unremarkable in the absence of IV contrast. T12-L1: No spinal canal or neural foraminal stenosis. L1-L2: No spinal canal or neural foraminal stenosis. L2-L3: No spinal canal stenosis. Disc bulge flattens ventral thecal sac without mass effect upon t he traversing L3 nerve roots. Foraminal components of the disc bulge and facet hypertrophy combine to produce mild bilateral neural foraminal stenosis. L3-L4: Moderate spinal canal stenosis due to diffuse disc bulge with a superimposed broad-based pos terior disc protrusion and a focal extrusion in the central and left paracentral zones. Disc material displaces the descending L4 nerve roots within both subarticular zones, left greater than right. Bul ky facet hypertrophy and buckling of the ligamentum flavum further contributes to the overall moderat e spinal canal and subarticular zone narrowing. Foraminal components of the disc bulge and facet hype rtrophy combine to produce moderate bilateral neural foraminal stenosis. Small facet effusions with s ubchondral cystic change, right greater than left. L4-L5: Moderate spinal canal stenosis due to diffuse disc bulge with superimposed broad-based poste rior disc protrusion and a focal extrusion in the central and right paracentral zones. Herniating dis c material displaces the descending L5 nerve roots within both subarticular zones. Subarticular zone and spinal canal narrowing is further exacerbated by bulky facet hypertrophy and buckling of the liga mentum flavum. Foraminal components of the disc bulge and facet hypertrophy combine to produce modera te bilateral stenosis, left greater than right. Subchondral cystic change noted. L5-S1: Diffuse disc bulge without mass effect upon the S1 nerve roots. Mild bilateral neural forami nal narrowing, record the left, due to foraminal components of the disc bulge. IMPRESSION: Moderate spinal canal stenosis and subarticular zone stenosis at L3-L4 and L4-L5, with suspected impi ngement of the descending L4 and/or L5 nerve roots at these levels, respectively. Varying degrees of neural foraminal narrowing of moderate. Reviewed by: Fran Nazario MD on 06/03/2021 11:34 AM PST Approved by: Fran Nazario MD on 06/03/2021 11:34 AM PST Station ID: [id number]
== END 2021-06-03 08:56 | disposition home or self-care (01) ==
LOC: DI 08:55
PROVIDERS: ATTEND Family Medicine
DX: M48.061 Spinal stenosis, lumbar region without neurogenic claudication (principal)

== ENCOUNTER 2021-08-01 15:05 | Emergency (ER) | payer OTHER ==
[2021-08-01] MEDS ORDERED: HYDROmorphone 1 MG/ML CARPUJECT IVP STA ×2 (15:19→15:20)
[2021-08-01] MEDS ORDERED: ONDANSETRON 4 MG/2 ML VIAL IVP STA (15:20)
[2021-08-01 15:31] LABS: BASOPHILS # (AUTO) 0.1 10^3/uL (0.0-0.1); BASOPHILS % (AUTO) 0.7 %; EOSINOPHILS # (AUTO) 0.2 10^3/uL (0.0-0.7); EOSINOPHILS % (AUTO) 2.1 %; HCT - HEMATOCRIT 42.9 % (42.0-52.0); HGB - HEMOGLOBIN 15.3 g/dL (14.0-18.0); LYMPHOCYTES # (AUTO) 3.5 10^3/uL (1.5-3.5); LYMPHOCYTES % (AUTO) 38.6 %; MEAN CORPUSCULAR HEMOGLOBIN 30.9 pg (27.0-31.0); MEAN CORPUSCULAR HGB CONC 35.7 g/dL (32.0-36.0); MEAN CORPUSCULAR VOLUME 86.7 fL (80.0-94.0); MEAN PLATELET VOLUME 11.1 fL (7.4-11.4); MONOCYTES # (AUTO) 0.5 10^3/uL (0.0-1.0); MONOCYTES % (AUTO) 5.4 %; NEUTROPHILS # (AUTO) 4.7 10^3/uL (1.5-6.6); NEUTROPHILS % (AUTO) 52.6 %; PLT - PLATELET COUNT 171 10^3/uL (130-450); RED BLOOD COUNT 4.95 10^6/uL (4.70-6.10); RED CELL DISTRIBUTION WIDTH 13.2 % (12.0-15.0); WHITE BLOOD COUNT 8.9 x10^3/uL (4.8-10.8)
[2021-08-01] MEDS ORDERED: IOVERSOL 320 100 ML VIAL IVP ONE ×2 (15:31→16:08)
--- NOTE | 2021-08-01 15:31 | ED Physician Documentation ---
PD HPI MAJOR TRAUMA - Stated complaint Stated Complaint: FALL - Chief complaint Chief Complaint: Trauma Ch/Bk - History obtained from History obtained from: Patient, Family - Additional information Additional information: 56-year-old gentleman with history of bioprosthetic aortic valve, not on anticoagulation was up in his ladder in the garage and fell on the left side and complains of severe left chest and shoulder pain. Of note he also fell about a week ago hitting his head was not assessed. He came by private vehicle accompanied by his who is a nurse, modified trauma called after triage. Review of Systems Ten Systems: 10 systems reviewed and negative Constitutional: denies: Fever, Chills Nose: reports: Reviewed and negative Throat: reports: Reviewed and negative PD PAST MEDICAL HISTORY - Past Medical History Cardiovascular: Murmur Respiratory: Sleep apnea, CPAP use Endocrine/Autoimmune: None GI: GERD : None HEENT: Chronic hearing loss Psych: None Musculoskeletal: Chronic back pain Derm: None - Past Surgical History Past Surgical History: Yes General: EGD Ortho: Shoulder arthroplasty, Other - Present Medications Home Medications: Ambulatory Orders Medication Instructions Recorded Confirmed Methotrexate Inj [Methotrexate] 0.4 mg SQ ONCE 11/17/20 11/17/20 Metoprolol Tartrate [Lopressor] 50 mg PO DAILY 11/17/20 11/18/20 Omeprazole [PriLOSEC] 20 mg PO BID 11/17/20 11/17/20 Aspirin [Aspirin EC] 81 mg PO DAILY 11/18/20 11/18/20 Multivitamin 1 each PO BID 11/18/20 11/18/20 Rosuvastatin Calcium [Crestor] 40 mg PO DAILY 11/18/20 11/18/20 Lidocaine Patch 5% [Lidoderm Patch] 1 patch TOP DAILY PRN #10 patch 08/01/21 Oxycodone HCl/Acetaminophen 1 - 2 each PO Q6H PRN #30 tablet 08/01/21 [Percocet 5-325 mg Tablet] - Allergies Allergies/Adverse Reactions: Allergies Allergy/AdvReac Type Severity Reaction Status Date / Time adhesive tape Allergy Rash Verified 08/01/21 15:29 Sulfa (Sulfonamide Allergy Unknown Verified 08/01/21 15:29 Antibiotics) - Social History Does the pt smoke?: No Smoking Status: Never smoker Does the pt drink ETOH?: Yes Does the pt have substance abuse?: No - Immunizations Immunizations are current?: Yes - POLST Patient has POLST: No PD ED PE NORMAL - Vitals Vital signs reviewed: Yes - General General: Alert and oriented X 3, Other (Quite uncomfortable and is clutching his left chest and pain and hyperventilating.) - HEENT HEENT: PERRL, EOMI - Neck Neck: No bony TTP (A c-collar was ordered, but patient refused.) - Cardiac Cardiac: Other (Regularly irregular. notes history of bigeminy which is what he is in on the monitor.) - Respiratory Respiratory: No respiratory distress, Other (Diffuse tenderness and some early bruising to the left chest wall in the midaxillary line) - Abdomen Abdomen: Non tender, Non distended, Other (Initial bedside fast scan negative at approximately 3:25 PM.) - Back Back: No CVA TTP, No spinal TTP - Derm Derm: Normal color, Warm and dry - Extremities Extremities: No edema, No calf tenderness / cord - Neuro Neuro: Alert and oriented X 3, No motor deficit, No sensory deficit, Normal speech Eye Opening: Spontaneous Motor: Obeys Commands Verbal: Oriented GCS Score: 15 Results - Vitals Vitals: Vital Signs - 24 hr 08/01/21 08/01/21 08/01/21 15:24 16:18 16:30 Temperature 36.4 C L 36.8 C Heart Rate 88 70 67 Respiratory 32 H 10 L 13 Rate Blood Pressure 151/96 H 132/66 H 117/76 O2 Saturation 100 96 96 Oxygen O2 Source Room air - Labs Labs: Laboratory Tests 08/01/21 08/01/21 08/01/21 15:20 15:20 15:20 WBC 8.9 RBC 4.95 Hgb 15.3 Hct 42.9 MCV 86.7 MCH 30.9 MCHC 35.7 RDW 13.2 Plt Count 171 MPV 11.1 Neut # (Auto) 4.7 Lymph # (Auto) 3.5 [place] # (Auto) 0.5 Eos # (Auto) 0.2 Baso # (Auto) 0.1 Absolute Nucleated RBC 0.00 Nucleated RBC % 0.0 PT 12.6 INR 1.1 Sodium 138 Potassium 4.2 Chloride 105 Carbon Dioxide 26 Anion Gap 7.0 BUN 29 H Creatinine 1.0 Estimated GFR (MDRD) 77 L Glucose 118 H Calcium 9.4 - Rads (name of study) T padron scan, single view chest x-ray, left shoulder x-ray notable for 3-4 left posterior rib fractures, no other traumatic findings Radiology: EMP read contemporaneously PD MEDICAL DECISION MAKING - ED course ED course: 56-year-old gentleman with fall from height, he is having quite a bit of pain from left chest wall injuries. Given the height of the fall and distracting injuries padron scan was done with only the findings above and he was much better after pain medication. He was also administered an incentive spirometer and taught how to use it. Departure - Departure Disposition: 01 Home, Self Care Clinical Impression: Multiple rib fractures Qualifiers: Encounter type: initial encounter Fracture type: closed Laterality: left Qualified Code(s): S22.42XA - Multiple fractures of ribs, left side, initial encounter for closed fracture Contusion of chest wall Qualifiers: Encounter type: initial encounter Laterality: left Qualified Code(s): S20.212A - Contusion of left front wall of thorax, initial encounter Fall from ladder Qualifiers: Encounter type: initial encounter Qualified Code(s): W11.XXXA - Fall on and from ladder, initial encounter Contusion of left shoulder Qualifiers: Encounter type: initial encounter Qualified Code(s): S40.012A - Contusion of left shoulder, initial encounter Condition: Good Record reviewed to determine appropriate education?: Yes Instructions: ED Fx Rib Prescriptions: Lidocaine Patch 5% [Lidoderm Patch] 1 patch TOP DAILY PRN #10 patch PRN Reason: pain Oxycodone HCl/Acetaminophen [Percocet 5-325 mg Tablet] 1 - 2 each PO Q6H PRN #30 tablet PRN Reason: pain Comments: I sent your prescriptions electronically to [facility] in [place]. Return if worse. Use the incentive spirometer as often as you can. Followup with your doctor in 1 week for recheck. I am prescribing a short course of narcotic pain medication for you. These are potentially dangerous and addictive medications that should be used carefully. These medications may constipate you. Take an luxh-ret-pbbrhbj stool softener (docusate) twice daily with plenty of water while taking these medications. If you go 24 hours without a bowel movement, take khah-miz-[id number] miralax, per package instructions. Do not drink or drive while taking these medications. If you received narcotic or sedating medications while in the emergency department, do not drive for 24 hours. Store this medication in a safe, secure place and out of reach of children. It is a violation of federal law to give or sell this medication to another person or to use in a manner other than prescribed. The ED will not refill narcotic prescriptions, including prescriptions lost or stolen. To dispose of unwanted medications: 1. [facility] at [address] in [place] has a medication drop box. They accept prescription medications (in pill form) Tuesday through Tuesday 9:00 a.m. to 5:00 p.m. 2. [facility] accepts prescription medications (in pill form only) for disposal year round. Call for more information. 3. Contact the [facility] for the next [facility] sponsored prescription drug collection event. , [phone], or [phone]; Note that many narcotic pain relievers also contain Tylenol/acetaminophen. Please ensure that your total dose of acetaminophen from all sources does not exceed 3 g (3000 mg) per day. Discharge Date/Time: 08/01/21 17:13
[2021-08-01 15:33] LABS: INR 1.1 (0.8-1.2); PT - PROTHROMBIN TIME 12.6 secs (9.9-12.6)
[2021-08-01 15:36] LABS: CALCIUM 9.4 mg/dL (8.5-10.3); POTASSIUM 4.2 mmol/L (3.5-5.0)
--- NOTE | 2021-08-01 15:58 | XRAY Report ---
PROCEDURE: Chest 1 View X-Ray INDICATIONS: chest pain p fall TECHNIQUE: One view of the chest was acquired. COMPARISON: 10/27/2019, 01/31/2018 FINDINGS: Surgical changes and devices: Sternotomy wires and an aortic valve prosthesis can be seen. Lungs and pleura: On the semiupright images, no large pneumothorax or large pleural effusions can be seen. No focal infiltrates are seen. Low lung volumes can be seen, causing a crowded appearance to the lung markings. Mediastinum: Mediastinal contours appear normal. Heart size is normal. Bones and chest wall: No displaced fracture is identified. No suspicious bony lesions. Age-appropria te degenerative changes are seen. Overlying soft tissues appear unremarkable. IMPRESSION: Limited portable chest study with low lung volumes, without an acute abnormality seen. Postoperative and degenerative changes are seen. If there is strong clinical concern for a post traumatic abnormality that is not seen on this plain f ilm study, then please consider a dedicated chest CT with IV contrast for further evaluation. Reviewed by: Guerrero Ramirez MD on 08/01/2021 2:57 PM [place] Approved by: Guerrero Ramirez MD on 08/01/2021 2:57 PM [facility] Station ID: [id number]
--- NOTE | 2021-08-01 16:13 | CT Report ---
PROCEDURE: HEAD WO INDICATIONS: IV only, L side trauma TECHNIQUE: Noncontrast 4.5 mm thick angled axial sections acquired from the foramen magnum to the vertex. For r adiation dose reduction, the following was used: automated exposure control, adjustment of mA and/or kV according to patient size. COMPARISON: Correlation is made with prior brain MRI, 03/02/2015. Correlation is also made with the a ompanying cervical spine CT and abdomen and pelvis CT, 08/01/2021. FINDINGS: Image quality: Excellent. CSF spaces: Basal cisterns are patent. No extra-axial fluid collections. Ventricles are normal in size and shape. Brain: No midline shift. No intracranial masses or hemorrhage. Keita-white matter interface is norm al. Skull and face: Calvarium and visualized facial bones are intact, without suspicious lesions. Sinuses: Visualized sinuses and mastoids are clear. IMPRESSION: Unremarkable noncontrast head CT, without acute intracranial hemorrhage. No displaced fracture is identified. Reviewed by: Guerrero Ramirez MD on 08/01/2021 3:12 PM [facility] Approved by: Guerrero Ramirez MD on 08/01/2021 3:12 PM [facility] Station ID: [id number]
--- NOTE | 2021-08-01 16:16 | CT Report ---
PROCEDURE: CERVICAL SPINE WO INDICATIONS: fall, disctracting inj TECHNIQUE: Noncontrast 3 mm thick sections acquired from the skull base to the T4 level. Sagittal and coronal r eformats were then constructed. For radiation dose reduction, the following was used: automated exp osure control, adjustment of mA and/or kV according to patient size. COMPARISON: 03/02/2015. Correlation is also made with the accompanying head CT and abdomen pelvis CT, 03/31/2022. FINDINGS: Image quality: Excellent. Bones: No acute fractures or dislocations. There is a remote fracture versus a developmental anomal y along the posterior aspect of the C3 level, as on series 6 image 44, which is stable compared to 20 15. Visualized superior ribs are intact. There is moderate to severe disc space narrowing seen at the C6-C7 level. Mild to moderate disc space narrowing can be seen at C4-C5 and at C5-C6. Sternotomy wires are partially seen. Soft tissues: Prevertebral soft tissues are normal in thickness. No paravertebral hematomas. No ap ical pneumothoraces. IMPRESSION: Negative for acute fracture. Vertebral body fusion can be seen at the C6-C7 level. Please correlate with prior history. Incidental note is made of: Sternotomy wires Reviewed by: Guerrero Ramirez MD on 08/01/2021 3:15 PM [place] Approved by: Guerrero Ramirez MD on 08/01/2021 3:15 PM [facility] Station ID: [id number]
--- NOTE | 2021-08-01 16:20 | CT Report ---
PROCEDURE: Abdomen/Pelvis W INDICATIONS: IV only, L side trauma CONTRAST: IV CONTRAST: Optiray 320 ml: 100 PO CONTRAST: *NO PO CONTRAST TECHNIQUE: After the administration of IV contrast, 5 mm thick sections acquired from the diaphragms to the symp hysis. 5 mm thick coronal and sagittal reformats were acquired. For radiation dose reduction, the f ollowing was used: automated exposure control, adjustment of mA and/or kV according to patient size. COMPARISON: Correlation is made with the accompanying cervical spine CT and head CT examinations 07/14. FINDINGS: Image quality: Excellent. ABDOMEN: Lung bases: Lung bases are clear. Heart size is normal. Sternotomy wires and an aortic valve prost hesis are partially seen. Solid organs: Left-sided liver cysts are seen. No liver laceration can be seen. No suspicious liver lesion is seen. The liver demonstrates normal size. The spleen demonstrates normal size and demonstra madelin no focal lesion. No splenic laceration can be seen in this patient with left-sided trauma. Gallbladder wall does not appear thickened. Biliary system is non dilated. Pancreas enhances norm ally. No adrenal nodules. Kidneys demonstrate normal size and enhancement, without hydronephrosis. Peritoneum and bowel: Bowel loops demonstrate normal wall thickness and caliber. No free fluid or a ir. A normal appendix is incidentally noted. Nodes and vessels: No retroperitoneal or mesenteric adenopathy by size criteria. Aorta and inferior vena cava are normal in size. Miscellaneous: No ventral hernias. PELVIS: Genitourinary: Bladder wall thickness is normal. Miscellaneous: No inguinal adenopathy. Bilateral fat-containing inguinal hernias are seen, left lar sebastien than right. Bones: Minimally displaced left posterior rib fractures are seen which involve at least the eighth, ninth, and 10th ribs. No acute vertebral body fracture can be seen. Minimal remote appearing anterior wedge deformities can be seen involving the thoracolumbar junction. IMPRESSION: Minimally displaced left posterior rib fractures are seen. No associated visualized pneumothorax. No splenic abnormality is seen. No acute vertebral body fracture can be seen. Minimal remote appearing thoracolumbar junction anterio r wedge deformities are seen. Incidental note is made of: Sternotomy wires and an aortic valve prosthesis Normal appendix Bilateral fat-containing inguinal hernias Reviewed by: Guerrero Ramirez MD on 08/01/2021 3:19 PM [facility] Approved by: Guerrero Ramirez MD on 08/01/2021 3:19 PM [facility] Station ID: [id number]
--- NOTE | 2021-08-01 16:26 | CT Report ---
PROCEDURE: CHEST W INDICATIONS: IV only, L side trauma CONTRAST: IV CONTRAST: Optiray 320 ml: 100 PO CONTRAST: *NO PO CONTRAST TECHNIQUE: After the administration of intravenous contrast, 1 mm axial images were acquired from the pulmonary apices through the posterior costophrenic angles. Axial 5 mm soft tissue kernel reconstructions were performed as well as 8 mm axial MIP and coronal and sagittal 5 mm reformations. For radiation dose reduction, the following was used: automated exposure control, adjustment of mA and/or kV according to patient size. COMPARISON: Correlation is made with the accompanying head CT, cervical spine CT, and abdomen pelvis CT 03/31/2022. FINDINGS: Image quality: Excellent. Lungs and pleura: No acute air space opacities. No pleural effusions or pneumothorax. Central and peripheral airways are patent and normal in caliber. Mediastinum: Sternotomy changes are noted. An aortic valve prosthesis is seen. Heart size is normal . No pericardial effusion. No mediastinal or hilar adenopathy by size criteria. Thoracic aorta and central pulmonary arteries are normal in size. Esophagus is normal in caliber. No hiatal hernia. Bones and chest wall: Minimally displaced left posterior rib fractures are seen involving the sevent h through ninth ribs. There is a potential additional nondisplaced fracture involving the left roll up operator ior sixth rib. No acute vertebral body fractures are seen. Remote appearing mild anterior wedge deformities are seen within the thoracolumbar junction. No suspicious bony lesions. No axillary or supraclavicular adenopathy by size criteria. The thyroid is normal in size and there are no incidental findings.. Abdomen: Simple appearing liver cysts are seen. No splenic laceration is seen. IMPRESSION: Mildly displaced left posterior rib fractures are seen. No associated pneumothorax can be seen. No splenic laceration is seen. No acute vertebral body fracture is seen. Remote appearing mild thoracolumbar junction anterior wedge deformities can be seen. Incidental note is made of: Liver cysts Sternotomy wires and an aortic valve prosthesis. Reviewed by: Guerrero Ramirez MD on 08/01/2021 3:24 PM [place] Approved by: Guerrero Ramirez MD on 08/01/2021 3:24 PM [facility] Station ID: [id number]
--- NOTE | 2021-08-01 16:26 | XRAY Report ---
PROCEDURE: Shoulder 3 View LT INDICATIONS: shoulder inj TECHNIQUE: 3 views of the shoulder were acquired. COMPARISON: Correlation is made with the accompanying chest CT. FINDINGS: Bones: No fractures or dislocations. No suspicious bony lesions. Visualized ribs appear intact. Soft tissues: No suspicious soft tissue calcifications. The visualized lung demonstrates a normal a ppearance. IMPRESSION: No fracture or dislocation can be seen. Reviewed by: Guerrero Ramirez MD on 08/01/2021 3:24 PM [facility] Approved by: Guerrero Ramirez MD on 08/01/2021 3:24 PM [facility] Station ID: [id number]
[2021-08-01] MEDS ORDERED: KETOROLAC 15 MG/ML VIAL IVP STA (16:31)
[2021-08-01 16:32] VITALS: BP 117/76
== END 2021-08-01 17:13 | disposition home or self-care (01) ==
LOC: ED 15:05
DX: S20.212A Contusion of left front wall of thorax, initial encounter (principal); S22.42XA Multiple fractures of ribs, left side, initial encounter for closed fracture; S40.012A Contusion of left shoulder, initial encounter; W11.XXXA Fall on and from ladder, initial encounter; Y92.008 Other place in unspecified non-institutional (private) residence as the place of occurrence of the external cause; Z79.01 Long term (current) use of anticoagulants; Z95.2 Presence of prosthetic heart valve
CPT/HCPCS: 36415; 70450; 71045; 71260; 72125; 73030; 74177; 80048; 85025; 85610; 96374; 96375; 99282; 99284; J1170; Q9967

== ENCOUNTER 2022-10-12 14:49 | Outpatient (CLI) | payer OTHER ==
--- NOTE | 2022-10-12 16:01 | Ultrasound Report ---
PROCEDURE: Testicle INDICATIONS: SCROTAL MASS TECHNIQUE: Real-time scanning was performed of the scrotum and testicles, with image documentation. Color and p ulse Doppler interrogation was performed of both testicles. COMPARISON: None. FINDINGS: Right: Testicle is normal in size at 5.1 x 2.4 x 3.1 cm, and homogenous in echotexture. Epididymis is normal in size and show heterogeneous echotexture. 7 mm hypoechoic focus is noted in right epididy mal tail region and show internal vascularity. Small right-sided hydrocele is seen. No varicoceles. O verlying scrotal skin is normal in thickness. Left: Testicle is normal in size at 5.1 x 2.8 x 3.5 cm, and homogeneous in echotexture. Epididymis is normal in overall size and morphology. Trace left hydrocele is seen. No varicoceles. Overlying sc rotal skin is normal in thickness. Doppler: Color and pulse Doppler demonstrate normal and symmetric arterial flow in both testicles. Diffusely increased vascularity in right epididymis is seen. IMPRESSION: 1. Finding is concerning for right epididymitis. 7 mm solid appearing lesion involving right epididym al tail region and show internal vascularity. A neoplastic process cannot be excluded. Sonographic fo llow-up is recommended. 2. Small right hydrocele and trace left hydrocele. 3. Normal-appearing bilateral testes. No evidence of testicular torsion. Reviewed by: Snatiago Mendosa MD on 10/12/2022 3:59 PM PDT Approved by: Santiago Mendosa MD on 10/12/2022 3:59 PM PDT Station ID: [id number]
== END 2022-10-12 14:50 | disposition home or self-care (01) ==
LOC: DI 14:49
PROVIDERS: ATTEND Registered Nurse
DX: R93.89 Abnormal findings on diagnostic imaging of other specified body structures (principal); N43.3 Hydrocele, unspecified

== ENCOUNTER 2022-10-26 07:32 | Outpatient (CLI) | payer OTHER ==
[~2022-10-26 07:32] MED LIST: GADOBUTROL 10 MMOL/10 ML VIAL ONE
--- NOTE | 2022-10-26 12:13 | MRI Report ---
PROCEDURE: PELVIS W/WO INDICATIONS: SCROTAL MASS TECHNIQUE: The scrotum is a region of interest. Axial T1, sagittal T2, coronal T2 haste, axial T1 wit h fat saturation, coronal T2, restricted diffusion sequences, coronal T1, axial T1 with fat saturatio n pre and post contrast. Coronal and sagittal T1 postcontrast with fat saturation. COMPARISON: Scrotal ultrasound 10/12/2022. CT abdomen pelvis 08/01/2021.. FINDINGS: No testicular mass. No obvious epididymal mass. No suspicious restricted effusion or enhancement iden tified. No T2 signal abnormality appreciated. Trace hydroceles. No penile mass is seen. No scrotal wall lesio ns seen. Prostatomegaly. Median lobe hypertrophy. This exam is not tailored for evaluation of the prostate gla nd. Bladder is mostly decompressed. No free fluid in the pelvis. No enlarged lymph nodes seen. IMPRESSION: No mass, restricted diffusion, or suspicious enhancement demonstrated. Recommend follow-up testicular ultrasound in 3-6 months for the ultrasound finding at the right epidi dymal tail. Reviewed by: Boogie Frank MD on 10/26/2022 12:11 PM PDT Approved by: Boogie Frank MD on 10/26/2022 12:11 PM PDT Station ID: [id number]
[2022-10-27] MEDS: GADOBUTROL 10 MMOL/10 ML VIAL IVP ONE (11:11)
== END 2022-10-26 07:33 | disposition home or self-care (01) ==
LOC: DI 07:32
PROVIDERS: ATTEND Registered Nurse
DX: N50.9 Disorder of male genital organs, unspecified (principal)
CPT/HCPCS: 72197; A9585

== ENCOUNTER 2022-10-27 08:16 | Outpatient (CLI) | payer OTHER ==
[2022-10-27 08:47] LABS: BASOPHILS # (AUTO) 0.1 10^3/uL (0.0-0.1); BASOPHILS % (AUTO) 0.7 %; EOSINOPHILS # (AUTO) 0.2 10^3/uL (0.0-0.7); EOSINOPHILS % (AUTO) 2.4 %; HCT - HEMATOCRIT 44.9 % (42.0-52.0); HGB - HEMOGLOBIN 15.5 g/dL (14.0-18.0); LYMPHOCYTES # (AUTO) 2.1 10^3/uL (1.5-3.5); LYMPHOCYTES % (AUTO) 30.7 %; MEAN CORPUSCULAR HEMOGLOBIN 29.1 pg (27.0-31.0); MEAN CORPUSCULAR HGB CONC 34.5 g/dL (32.0-36.0); MEAN CORPUSCULAR VOLUME 84.2 fL (80.0-94.0); MONOCYTES # (AUTO) 0.5 10^3/uL (0.0-1.0); MONOCYTES % (AUTO) 7.1 %; PLT - PLATELET COUNT 165 10^3/uL (130-450); RED BLOOD COUNT 5.33 10^6/uL (4.70-6.10); RED CELL DISTRIBUTION WIDTH 12.5 % (12.0-15.0); WHITE BLOOD COUNT 6.7 x10^3/uL (4.8-10.8)
[2022-10-27 09:05] LABS: ALBUMIN 4.4 g/dL (3.2-5.5); ALBUMIN/GLOBULIN RATIO 1.6 (1.0-2.2); ALKALINE PHOSPHATASE 48 IU/L (42-121); ALT ALANINE AMINOTRANSFERASE 22 IU/L (10-60); AST ASPARTATE AMINOTRANSFERASE 25 IU/L (10-42); BILIRUBIN,TOTAL 1.6 mg/dL (0.2-1.0); BUN - BLOOD UREA NITROGEN 25 mg/dL (6-20); CALCIUM 8.9 mg/dL (8.5-10.3); CARBON DIOXIDE - CO2 27 mmol/L (21-32); CHLORIDE 103 mmol/L (101-111); CREATININE 1.1 mg/dL (0.6-1.2); GFR - MDRD 69 (>89); GLUCOSE 103 mg/dL (70-100); POTASSIUM 4.3 mmol/L (3.5-5.0); SODIUM 137 mmol/L (135-145); TOTAL PROTEIN 7.1 g/dL (6.7-8.2)
[2022-10-27 09:39] LABS: CRP - C-REACTIVE PROTEIN < 1.0 mg/dL (0-1.0)
== END 2022-10-27 08:17 | disposition home or self-care (01) ==
LOC: LAB 08:16
PROVIDERS: ATTEND Internal Medicine
DX: M35.3 Polymyalgia rheumatica (principal)
CPT/HCPCS: 36415; 80053; 85025; 85651; 86140

== ENCOUNTER 2023-01-11 13:12 | Outpatient (CLI) | payer OTHER ==
--- NOTE | 2023-01-11 17:17 | Ultrasound Report ---
PROCEDURE: Testicle INDICATIONS: SCROTAL MASS TECHNIQUE: Real-time scanning was performed of the scrotum and testicles, with image documentation. Color and p ulse Doppler interrogation was performed of both testicles. COMPARISON: None. FINDINGS: Right: Testicle is normal in size at 4.9 x 2.7 x 3.5 cm, and homogenous in echotexture. Epididymis is normal in overall size and morphology. No hydrocele or varicoceles. Overlying scrotal skin is no rmal in thickness. Left: Testicle is normal in size at 5.0 x 2.6 x 3.8 cm, and homogeneous in echotexture. Epididymis is normal in overall size and morphology. No hydrocele or varicoceles. Overlying scrotal skin is no rmal in thickness. Doppler: Color and pulse Doppler demonstrate normal and symmetric arterial flow in both testicles. IMPRESSION: Normal sonographic evaluation of the bilateral testicles and epididymides. No masses identified. Reviewed by: Jostin Tay MD on 01/11/2023 5:15 PM PDT Approved by: Jostin Tay MD on 01/11/2023 5:15 PM PDT Station ID: [id number]
== END 2023-01-11 13:13 | disposition home or self-care (01) ==
LOC: DI 13:12
PROVIDERS: ATTEND Nurse Practitioner Adult Health
DX: N45.1 Epididymitis (principal); N50.9 Disorder of male genital organs, unspecified

== ENCOUNTER 2023-02-07 13:06 | Emergency (ER) | payer OTHER ==
[2023-02-07 13:22] VITALS: BP 132/76; O2SAT 100
[2023-02-07 13:57] LABS: BASOPHILS # (AUTO) 0.1 10^3/uL (0.0-0.1); BASOPHILS % (AUTO) 0.8 %; EOSINOPHILS # (AUTO) 0.1 10^3/uL (0.0-0.7); EOSINOPHILS % (AUTO) 1.4 %; HCT - HEMATOCRIT 41.9 % (42.0-52.0); HGB - HEMOGLOBIN 14.6 g/dL (14.0-18.0); LYMPHOCYTES # (AUTO) 1.5 10^3/uL (1.5-3.5); LYMPHOCYTES % (AUTO) 23.5 %; MEAN CORPUSCULAR HEMOGLOBIN 29.8 pg (27.0-31.0); MEAN CORPUSCULAR HGB CONC 34.8 g/dL (32.0-36.0); MEAN CORPUSCULAR VOLUME 85.5 fL (80.0-94.0); MEAN PLATELET VOLUME 10.5 fL (7.4-11.4); MONOCYTES # (AUTO) 0.5 10^3/uL (0.0-1.0); MONOCYTES % (AUTO) 7.2 %; NEUTROPHILS # (AUTO) 4.2 10^3/uL (1.5-6.6); NEUTROPHILS % (AUTO) 66.8 %; PLT - PLATELET COUNT 153 10^3/uL (130-450); RED CELL DISTRIBUTION WIDTH 12.9 % (12.0-15.0); WHITE BLOOD COUNT 6.3 x10^3/uL (4.8-10.8)
[2023-02-07 14:04] LABS: INR 1.1 (0.8-1.2); PT - PROTHROMBIN TIME 12.3 secs (9.9-12.6)
[2023-02-07 14:15] LABS: ALBUMIN 4.1 g/dL (3.2-5.5); ALBUMIN/GLOBULIN RATIO 1.9 (1.0-2.2); BILIRUBIN,TOTAL 0.8 mg/dL (0.2-1.0); CALCIUM 9.2 mg/dL (8.5-10.3); CREATININE 0.9 mg/dL (0.6-1.3); TOTAL PROTEIN 6.3 g/dL (6.4-8.9)
--- NOTE | 2023-02-07 14:40 | XRAY Report ---
PROCEDURE: Chest 1 View X-Ray INDICATIONS: CP/LIGHTHEADED TECHNIQUE: One view of the chest was acquired. COMPARISON: None. FINDINGS: Surgical changes and devices: Median sternotomy wires in place.. Lungs and pleura: No pleural effusions or pneumothorax. Lungs are clear. Mediastinum: Mediastinal contours appear normal. Heart size is normal. Bones and chest wall: No suspicious bony lesions. Overlying soft tissues appear unremarkable. IMPRESSION: No acute cardiopulmonary process. Reviewed by: Bairon Keith MD on 02/07/2023 2:38 PM PDT Approved by: Bairon Keith MD on 02/07/2023 2:38 PM PDT Station ID: [id number]
--- NOTE | 2023-02-07 16:10 | ED Physician Documentation ---
History of Present Illness - Stated complaint Stated Complaint: LT EYE/FACE SWELLING,DIZZINESS - Chief complaint Chief Complaint: General - History obtained from History obtained from: Patient - Additonal information Additional information: 57-year-old male with history of bicuspid aortic valve status post bioprosthetic valve replacement presents by private vehicle for approximately 1 week of left-s ided facial swelling. Earlier this week patient also had an episode of chest pain and lightheadedness. His prompted him to be evaluated in the emergency department to make sure that there is nothing scary going on. Patient reports remote history of dental extraction with implant, however this was months ago and he has not had any problems until this last week. Denies pain. Review of Systems Constitutional: denies: Fever, Chills Eyes: reports: Other (eyelid twitching). denies: Loss of vision, Decreased vision, Photophobia Ears: denies: Loss of hearing, Ear pain, Drainage/discharge Throat: reports: Other (L sided facial swelling). denies: Dental pain / toothache, Oral lesions / sores, Sore throat Cardiac: reports: Chest pain / pressure. denies: Palpitations, Calf pain Respiratory: denies: Dyspnea, Cough, Wheezing GI: reports: Nausea. denies: Abdominal Pain, Vomiting, Constipation, Diarrhea : denies: Dysuria, Frequency, Hesitancy Musculoskeletal: denies: Neck pain, Back pain, Extremity pain Neurologic: reports: Other (lightheadedness). denies: Generalized weakness, Focal weakness, Numbness PD PAST MEDICAL HISTORY - Past Medical History Cardiovascular: Murmur Respiratory: Sleep apnea, CPAP use Endocrine/Autoimmune: None GI: GERD : None HEENT: Chronic hearing loss Psych: None Musculoskeletal: Chronic back pain Derm: None - Past Surgical History Past Surgical History: Yes General: EGD Ortho: Shoulder arthroplasty, Other Cardiovascular: Valve replacement - Present Medications Home Medications: Ambulatory Orders Medication Instructions Recorded Confirmed Methotrexate Inj [Methotrexate] 0.4 mg SQ ONCE 11/17/20 11/17/20 Metoprolol Tartrate [Lopressor] 50 mg PO DAILY 11/17/20 11/18/20 Omeprazole [PriLOSEC] 20 mg PO BID 11/17/20 11/17/20 Aspirin [Aspirin EC] 81 mg PO DAILY 11/18/20 11/18/20 Multivitamin 1 each PO BID 11/18/20 11/18/20 Rosuvastatin Calcium [Crestor] 40 mg PO DAILY 11/18/20 11/18/20 Lidocaine Patch 5% [Lidoderm Patch] 1 patch TOP DAILY PRN #10 patch 08/01/21 Oxycodone HCl/Acetaminophen 1 - 2 each PO Q6H PRN #30 tablet 08/01/21 [Percocet 5-325 mg Tablet] - Allergies Allergies/Adverse Reactions: Allergies Allergy/AdvReac Type Severity Reaction Status Date / Time adhesive tape Allergy Rash Verified 02/07/23 13:17 Penicillins Allergy Hives Verified 02/07/23 13:17 Sulfa (Sulfonamide Allergy Unknown Verified 02/07/23 13:17 Antibiotics) - Social History Does the pt smoke?: No Smoking Status: Never smoker Does the pt drink ETOH?: Yes Does the pt have substance abuse?: No - Immunizations Immunizations are current?: Yes - POLST Patient has POLST: No PD ED PE NORMAL - Vitals Vital signs reviewed: Yes - General General: Alert and oriented X 3, No acute distress, Well developed/nourished - HEENT HEENT: Atraumatic, PERRL, EOMI, Ears normal, Moist mucous membranes, Pharynx benign, Dentition benign - Neck Neck: Supple, no meningeal sign, No bony TTP, Other (palpable nodule submandibular, possible salivary gland) - Cardiac Cardiac: RRR, No murmur, No gallop - Respiratory Respiratory: No respiratory distress, Clear bilaterally - Abdomen Abdomen: Soft, Non tender, Non distended - Back Back: No CVA TTP, No spinal TTP - Derm Derm: Normal color, Warm and dry, No rash - Extremities Extremities: No deformity, No tenderness to palpate, Normal ROM s pain, No edema - Neuro Neuro: Alert and oriented X 3, pediatric nephrologist 2-12 intact, No motor deficit, Normal speech - Psych Psych: Normal mood, Normal affect Results - Vitals Vitals: Oxygen O2 Source Room air - Labs Labs: Laboratory Tests 02/07/23 02/07/23 02/07/23 13:53 13:53 13:53 WBC 6.3 RBC 4.90 Hgb 14.6 Hct 41.9 L MCV 85.5 MCH 29.8 MCHC 34.8 RDW 12.9 Plt Count 153 MPV 10.5 Neut # (Auto) 4.2 Lymph # (Auto) 1.5 [place] # (Auto) 0.5 Eos # (Auto) 0.1 Baso # (Auto) 0.1 Absolute Nucleated RBC 0.00 Nucleated RBC % 0.0 PT 12.3 INR 1.1 Sodium 138 Potassium 4.0 Chloride 106 Carbon Dioxide 27 Anion Gap 5.0 L BUN 14 Creatinine 0.9 Estimated GFR (MDRD) 87 L Glucose 103 Calcium 9.2 Total Bilirubin 0.8 AST 17 ALT 12 Alkaline Phosphatase 71 Troponin I High Sens Total Protein 6.3 L Albumin 4.1 Globulin 2.2 Albumin/Globulin Ratio 1.9 02/07/23 02/07/23 13:53 17:03 WBC RBC Hgb Hct MCV MCH MCHC RDW Plt Count MPV Neut # (Auto) Lymph # (Auto) [place] # (Auto) Eos # (Auto) Baso # (Auto) Absolute Nucleated RBC Nucleated RBC % PT INR Sodium Potassium Chloride Carbon Dioxide Anion Gap BUN Creatinine Estimated GFR (MDRD) Glucose Calcium Total Bilirubin AST ALT Alkaline Phosphatase Troponin I High Sens 30.8 H* 31.1 H* Total Protein Albumin Globulin Albumin/Globulin Ratio PD Medical Decision Making - ED course Complexity details: reviewed old records, reviewed results, re-evaluated patient, considered differential, d/w patient ED course: Patient presents for left eyelid twitching, reported left facial swelling, and an episode earlier this week of chest pain and lightheadedness. Patient is overall well-appearing and nontoxic. Laboratory work reviewed. Troponin borderline, no recent high sensitivity troponins for comparison. Stable x2. CT of neck with contrast shows no acute findings to explain patient's reported facial swelling. Patient has been asymptomatic and pain free throughout his stay in the emergency department. Results of all lab and imaging findings discussed with patient, patient advised to return for new or worsening chest pains and to otherwise follow up with his primary care physician. All questions answered at time of discharge. Departure - Departure Disposition: 01 Home, Self Care Clinical Impression: Facial swelling Chest pain Qualifiers: Chest pain type: other chest pain Qualified Code(s): R07.89 - Other chest pain Condition: Stable Instructions: ED Chest Pain Atypical Unkn Cause Forms: PCP List Discharge Date/Time: 02/07/23 18:22
--- NOTE | 2023-02-07 16:32 | CT Report ---
PROCEDURE: SOFT TISSUE NECK W INDICATIONS: L JAW/NECK PAIN/SWELLING CONTRAST: 100mL Omni 300 TECHNIQUE: After the administration of intravenous contrast, 3.0 mm axial sections acquired from the sella to th e aortic arch. Additional oblique axial 3.0 mm sections acquired through the pharynx. 3 mm thick co jessica reformats were generated. For radiation dose reduction, the following was used: automated exp osure control, adjustment of mA and/or kV according to patient size. COMPARISON: None. FINDINGS: Image quality: Excellent. Lymph nodes: No enlarged lymph nodes seen throughout the neck. Vessels: Visualized vasculature appears patent. Neck spaces: The oropharynx, nasopharynx, and pharynx demonstrate no mucosal lesions. The vocal cor ds, false vocal cords, pyriform sinuses, epiglottis, vallecula, and tongue base all appear normal. E xtramucosal spaces appear unremarkable. Glands: The parotid and submandibular glands appear normal. The thyroid is normal in size and there are no incidental findings. Miscellaneous: Visualized brain and orbits appear normal. Lung apices appear clear. Superficial so ft tissues appear normal. Bones: No suspicious bony lesions. Partially visualized median sternotomy wires. Mild degenerative c hanges of the spine. Visualized sinuses and mastoids appear unremarkable. IMPRESSION: No significant soft tissue swelling. No organized fluid collections. Reviewed by: Bairon Keith MD on 02/07/2023 4:31 PM PDT Approved by: Bairon Keith MD on 02/07/2023 4:31 PM PDT Station ID: [id number]
[2023-02-08] MEDS ORDERED: iohexoL-300 100 ML VIAL IVP ONE (00:34)
== END 2023-02-07 18:22 | disposition home or self-care (01) ==
LOC: ED 13:06
DX: R22.0 Localized swelling, mass and lump, head (principal); R07.89 Other chest pain
CPT/HCPCS: 36415; 70491; 71045; 80053; 84484; 85025; 85610; 93005; 99283; 99284; Q9967

== ENCOUNTER 2023-04-27 09:15 | Outpatient (CLI) | payer OTHER ==
[2023-04-27 11:47] LABS: BASOPHILS % (AUTO) 0.5 %; EOSINOPHILS # (AUTO) 0.2 10^3/uL (0.0-0.7); HGB - HEMOGLOBIN 15.6 g/dL (14.0-18.0); LYMPHOCYTES # (AUTO) 1.7 10^3/uL (1.5-3.5); MEAN CORPUSCULAR HEMOGLOBIN 29.1 pg (27.0-31.0); MEAN CORPUSCULAR HGB CONC 33.9 g/dL (32.0-36.0); MEAN CORPUSCULAR VOLUME 85.8 fL (80.0-94.0); MEAN PLATELET VOLUME 10.9 fL (7.4-11.4); MONOCYTES # (AUTO) 0.4 10^3/uL (0.0-1.0); MONOCYTES % (AUTO) 5.3 %; PLT - PLATELET COUNT 180 10^3/uL (130-450); RED BLOOD COUNT 5.36 10^6/uL (4.70-6.10); RED CELL DISTRIBUTION WIDTH 13.1 % (12.0-15.0); WHITE BLOOD COUNT 8.3 x10^3/uL (4.8-10.8)
[2023-04-27 13:36] LABS: RHEUMATOID FACTOR NEGATIVE (Negative)
[2023-05-02 16:08] LABS: ANTINUCLEAR ANTIBODIES IFA Negative (.)
== END 2023-04-27 09:30 | disposition home or self-care (01) ==
LOC: LAB.N 09:15
PROVIDERS: ATTEND Family Medicine
DX: M35.3 Polymyalgia rheumatica (principal)
CPT/HCPCS: 36415; 85025; 85651; 86038; 86140; 86430

== ENCOUNTER 2023-04-29 18:17 | Outpatient (CLI) | payer OTHER ==
[2023-04-29 18:56] LABS: ESTIMATED AVERAGE GLUCOSE 105 mg/dL (70-100); HEMOGLOBIN A1c% 5.3 % (4.27-6.07)
[2023-04-29 19:06] LABS: ALBUMIN 4.7 g/dL (3.2-5.5); ALBUMIN/GLOBULIN RATIO 2.1 (1.0-2.2); BILIRUBIN,TOTAL 0.8 mg/dL (0.2-1.0); CALCIUM 9.5 mg/dL (8.5-10.3); POTASSIUM 4.1 mmol/L (3.5-4.5); TOTAL PROTEIN 6.9 g/dL (6.4-8.9); URIC ACID 5.9 mg/dL (4.4-7.6)
[2023-04-29 19:12] LABS: THYROID STIMULATING HORMONE 2.73 uIU/mL (0.34-5.60)
== END 2023-04-29 18:18 | disposition home or self-care (01) ==
LOC: LAB 18:17
PROVIDERS: ATTEND Registered Nurse
DX: N43.3 Hydrocele, unspecified (principal); R21 Rash and other nonspecific skin eruption; M67.40 Ganglion, unspecified site
CPT/HCPCS: 36415; 80053; 82306; 82607; 83036; 83690; 84443; 84550

== ENCOUNTER 2023-07-10 15:05 | Emergency (ER) | payer OTHER ==
[2023-07-10 15:40] LABS: BASOPHILS % (AUTO) 0.3 %; EOSINOPHILS % (AUTO) 0.3 %; HCT - HEMATOCRIT 45.2 % (42.0-52.0); HGB - HEMOGLOBIN 15.9 g/dL (14.0-18.0); LYMPHOCYTES # (AUTO) 1.1 10^3/uL (1.5-3.5); LYMPHOCYTES % (AUTO) 13.8 %; MEAN CORPUSCULAR HEMOGLOBIN 29.4 pg (27.0-31.0); MEAN CORPUSCULAR HGB CONC 35.2 g/dL (32.0-36.0); MEAN CORPUSCULAR VOLUME 83.7 fL (80.0-94.0); MEAN PLATELET VOLUME 10.8 fL (7.4-11.4); MONOCYTES # (AUTO) 0.2 10^3/uL (0.0-1.0); MONOCYTES % (AUTO) 2.4 %; NEUTROPHILS # (AUTO) 6.6 10^3/uL (1.5-6.6); NEUTROPHILS % (AUTO) 83.1 %; PLT - PLATELET COUNT 179 10^3/uL (130-450); RED CELL DISTRIBUTION WIDTH 12.4 % (12.0-15.0); WHITE BLOOD COUNT 7.9 x10^3/uL (4.8-10.8)
[2023-07-10 15:55] LABS: ALBUMIN 4.3 g/dL (3.2-5.5); BILIRUBIN,TOTAL 1.1 mg/dL (0.2-1.0); CALCIUM 9.2 mg/dL (8.5-10.3); CREATININE 1.1 mg/dL (0.6-1.3); TOTAL PROTEIN 6.5 g/dL (6.4-8.9)
[2023-07-10 16:05] LABS: TROPONIN I HIGH SENSITIVITY 26.2 ng/L (2.3-19.7)
--- NOTE | 2023-07-10 16:10 | XRAY Report ---
PROCEDURE: Chest 1V INDICATIONS: Chest pain TECHNIQUE: One view of the chest was acquired. COMPARISON: 01/30/2023 FINDINGS: Surgical changes and devices: Sternotomy changes are noted. Lungs and pleura: No pleural effusions or pneumothorax. Lungs are clear. Mediastinum: Mediastinal contours appear normal. Heart size is normal. Bones and chest wall: No suspicious bony lesions. Overlying soft tissues appear unremarkable. IMPRESSION: No acute cardiopulmonary process. Reviewed by: Guerrero Ramirez MD on 07/10/2023 3:08 PM [facility] Approved by: Guerrero Ramirez MD on 07/10/2023 3:08 PM [facility] Station ID: [id number]
[2023-07-10] MEDS ORDERED: SODIUM CHLORIDE 0.9% 1,000 ML IV STA (17:45)
--- NOTE | 2023-07-10 18:51 | ED Physician Documentation ---
PD HPI CHEST PAIN - Stated complaint Stated Complaint: SOA, TIGHTNESS IN CHEST - Chief complaint Chief Complaint: Cardiac - History obtained from History obtained from: Patient, Family - Additional information Additional information: The pt comes to the ED with CC of chest tightness on and off for the past few days. He states he will notice this somewhat randomly, but it has sometimes happened after physical work. He has a h/o valve replacement, but has not had any sx like this since the valvuloplasty. He believes that at the time of the work-up for his valve, he had evaluation for CAD with stress test and angiogram, but has not had either of these in the 4 years since. He denies shortness of breath currently. He does note feeling lightheaded after some physical work this morning. He does note that he doesn't usually get any sicknesses, but has felt a little run down in the past couple of days, and had some mild congestion this morning. The pt is fairly healthy otherwise, but does report a busy and stressful schedule. He is not a smoker. He has no known h/o cad. No sx currently. PD PAST MEDICAL HISTORY - Past Medical History Past Medical History: Yes Cardiovascular: Murmur, Other Respiratory: Sleep apnea, CPAP use Endocrine/Autoimmune: None GI: GERD : None HEENT: Chronic hearing loss Psych: None Musculoskeletal: Chronic back pain Derm: None - Past Surgical History Past Surgical History: Yes General: EGD Ortho: Shoulder arthroplasty, Other Cardiovascular: Valve replacement - Present Medications Home Medications: Ambulatory Orders Medication Instructions Recorded Confirmed Omeprazole [PriLOSEC] 20 mg PO BID 11/17/20 07/10/23 Aspirin [Aspirin EC] 81 mg PO DAILY 11/18/20 07/10/23 Multivitamin 1 each PO BID 11/18/20 07/10/23 Rosuvastatin Calcium [Crestor] 40 mg PO DAILY 11/18/20 07/10/23 Prednisone [Alicia] 10 mg PO DAILY PM 07/10/23 07/10/23 - Allergies Allergies/Adverse Reactions: Allergies Allergy/AdvReac Type Severity Reaction Status Date / Time adhesive tape Allergy Rash Verified 07/10/23 16:01 Penicillins Allergy Hives Verified 07/10/23 16:01 Sulfa (Sulfonamide Allergy Unknown Verified 07/10/23 16:01 Antibiotics) - Social History Does the pt smoke?: No Smoking Status: Never smoker Does the pt drink ETOH?: Yes Does the pt have substance abuse?: No - Immunizations Immunizations are current?: Yes - POLST Patient has POLST: No PD ED PE NORMAL - Vitals Vital signs reviewed: Yes - General General: Alert and oriented X 3, No acute distress, Well developed/nourished - HEENT HEENT: Atraumatic, PERRL, EOMI, Moist mucous membranes - Neck Neck: Supple, no meningeal sign - Cardiac Cardiac: RRR, No murmur - Respiratory Respiratory: No respiratory distress, Clear bilaterally - Abdomen Abdomen: Soft, Non tender, Non distended - Derm Derm: Normal color, Warm and dry, No rash - Extremities Extremities: No deformity, No edema, No calf tenderness / cord - Neuro Neuro: Alert and oriented X 3, base filler operator 2-12 intact, Normal speech, Other (grossly intact) - Psych Psych: Normal mood, Normal affect Results - Vitals Vitals: Oxygen O2 Source Room air - EKG (time done) 1518 EKG releavant findings:: EKG personally interpreted by author of this note. Relevant findings are: Rate: Rate (enter#) (NSR) Rhythm: NSR [place]: Normal Intervals: Normal MD, Other (QRS: IVCD) Ischemia: ST elevation c/w repol Compare to prior EKG: Old EKG unavailable Computer interpretation: Disagree with computer (Pt not in a. flutter. Single P wave per QRS seen in multiple leads.) - Labs Labs: Laboratory Tests 07/10/23 07/10/23 07/10/23 15:37 15:37 17:40 WBC 7.9 RBC 5.40 Hgb 15.9 Hct 45.2 MCV 83.7 MCH 29.4 MCHC 35.2 RDW 12.4 Plt Count 179 MPV 10.8 Neut # (Auto) 6.6 Lymph # (Auto) 1.1 L [place] # (Auto) 0.2 Eos # (Auto) 0.0 Baso # (Auto) 0.0 Absolute Nucleated RBC 0.00 Nucleated RBC % 0.0 Sodium 138 Potassium 4.0 Chloride 109 Carbon Dioxide 23 Anion Gap 6.0 BUN 20 Creatinine 1.1 Estimated GFR (MDRD) 69 L Glucose 126 H Calcium 9.2 Total Bilirubin 1.1 H AST 16 ALT 16 Alkaline Phosphatase 47 Troponin I High Sens 26.2 H* 25.2 H* Total Protein 6.5 Albumin 4.3 Globulin 2.2 Albumin/Globulin Ratio 2.0 Lipase 30 PD Medical Decision Making - ED course Complexity details: reviewed old records, reviewed results, re-evaluated patient, considered differential, d/w patient, d/w family ED course: The pt was worked up with labs, EKG, and CXR, all of which were unremarkable. The pt was very well-appearing, but I felt that given his sx, he should follow up with cardiology as soon as possible. The pt's cardiology office did not have weekend coverage, and pt's , who is a nurse, stated she would call them first thing in the morning to get him in as soon as possible. I have discussed with both pt and that pt should have a very low threshold for return, should his sx worsen. He will take an aspirin a day. Departure - Departure Disposition: 01 Home, Self Care Clinical Impression: Lightheadedness Chest pain Qualifiers: Chest pain type: unspecified Qualified Code(s): R07.9 - Chest pain, unspecified Condition: Stable Instructions: ED Chest Pain Atypical Unkn Cause, ED Near Syncope Unkn Comments: Your repeat cardiac enzymes are stable and actually slightly decreased from your initial level. As we discussed, your level of enzymes is not indicative of a "heart attack" at this point in time. However, given the symptoms you have been having, it is very important that you follow-up with your washer carcass for further evaluation and to consider whether stress test and repeat angiogram should be done. Please call your washer carcass's office first thing tomorrow morning to set up a follow-up appointment. You should also follow-up with your primary doctor if that is faster than seeing your washer carcass, because they can only set you up for a stress test and event monitoring. While a cardiac source is not the only potential reason for your symptoms, it is the most important consideration at this time. If you have an episode of severe chest pain shortness of breath with sweating and lightheadedness like you had, please return to the emergency department immediately. Forms: PCP List Discharge Date/Time: 07/10/23 19:04
[2023-07-10 19:07] VITALS: BP 121/72; O2SAT 95
== END 2023-07-10 19:04 | disposition home or self-care (01) ==
LOC: ED 15:05
DX: R07.9 Chest pain, unspecified (principal); R42 Dizziness and giddiness; Z79.899 Other long term (current) drug therapy; Z79.82 Long term (current) use of aspirin
CPT/HCPCS: 36415; 80053; 83690; 84484; 85025; 93005; 99283; 99284

== ENCOUNTER 2023-07-20 08:00 | Outpatient (CLI) | payer OTHER ==
--- NOTE | 2023-07-21 10:58 | MRI Report ---
PROCEDURE: Lumbar Spine WO INDICATIONS: LUMBAR DISC HERNIATION TECHNIQUE: Noncontrast sagittal T1 spin echo and T2 fast echo, sagittal STIR, axial T1 and T2 fast spin echo thr ough the lumbar spine. In cases with scoliosis, additional coronal T2 fast spin echo may be performe d. COMPARISON: None. FINDINGS: Image quality: Excellent. Alignment and Curvature: There is normal bony alignment. Bone Marrow: Marrow is of normal overall signal. No acute vertebral body compression fractures. Spinal Cord: Conus medullaris terminates at the L1-2 level. Visualized cord demonstrates normal sig nal and size. Paraspinous Soft Tissues: No paravertebral masses. T12-L1: Mild disc height loss. L1-L2: Disc height loss, disc desiccation, small Schmorl's nodes . Trace facet effusions. Mild misael ateral neural foraminal narrowing. L2-L3: Broad-based disc bulge, epidural lipomatosis, mild facet hypertrophy and facet effusions. M oderate spinal canal narrowing. Mild bilateral neural foraminal narrowing. L3-L4: Broad-based disc bulge, facet effusions, epidural lipomatosis and mild ligamentum flavum hyp ertrophy causing moderate to severe spinal canal narrowing. Superimposed central disc extrusion conta cting the nerve roots on the left (series 7, image 28). Severe left and moderate right neural foramin al narrowing. L4-L5: Broad-based disc bulge. Right facet effusion. Moderate left and mild right neural foraminal narrowing. L5-S1: Broad-based disc bulge and mild facet hypertrophy. IMPRESSION: Multilevel degenerative disc disease and facet arthrosis. Of note, there is moderate spinal canal darci rowing at L2-3, moderate to severe spinal canal narrowing at L3-4, severe left and moderate right homero ral foraminal narrowing at L3-4. Additionally, there is a central disc extrusion at L3-4, contacting the left-sided nerve roots. Reviewed by: Justino Zazueta MD on 07/21/2023 10:57 AM PST Approved by: Justino Zazueta MD on 07/21/2023 10:57 AM PST Station ID: [id number]
== END 2023-07-20 23:59 | disposition home or self-care (01) ==
LOC: DI 08:00
PROVIDERS: ATTEND Physical Medicine & Rehabilitation
DX: M51.26 Other intervertebral disc displacement, lumbar region (principal); M47.816 Spondylosis without myelopathy or radiculopathy, lumbar region; M48.061 Spinal stenosis, lumbar region without neurogenic claudication

== ENCOUNTER 2023-08-28 19:11 | Emergency (ER) | payer OTHER ==
--- NOTE | 2023-08-28 20:44 | ED Physician Documentation ---
History of Present Illness - Stated complaint Stated Complaint: ACCIDENTAL OD - Chief complaint Chief Complaint: Heent - Additonal information Additional information: 58-year-old male with history of open heart surgery with valve replacement, Hypertension,Presents emergency department for accidental overdose on methotrexate. Patient says that he is currently being followed by rheumatology for some sort of autoimmune disease they are not entirely sure what it is but in the past has been told that he has polymyalgia rheumatica. Patient was recently switched from injections of methotrexate to oral methotrexate. When he was talking to the ceramics test engineer the way he understand the discharge instructions he was told to take 8 pills a day for the morning and 4 at night. Patient has been doing this for a total of 10 days there are 2.5 mg tablets which is a total of 20 mg of methotrexate a day for 10 days. Patient has been noticing these been having difficulty swallowing, very dark urine, increased sores in his mouth and coughing up a lot of what he describes as pus and phlegm. He told his to check the bottle to make sure that he was not having some sort of side effect of the medication and it donned on him that he was taking the medication wrong and was supposed to only be taking this dose once a week. Poison control called myself their product development director is aware and they advised him to come into the emergency department for further evaluation. PD PAST MEDICAL HISTORY - Past Medical History Cardiovascular: Murmur, Other Respiratory: Sleep apnea, CPAP use Endocrine/Autoimmune: None GI: GERD : None HEENT: Chronic hearing loss Psych: None Musculoskeletal: Chronic back pain Derm: None - Past Surgical History Past Surgical History: Yes General: EGD Ortho: Shoulder arthroplasty, Other Cardiovascular: Valve replacement - Present Medications Home Medications: Ambulatory Orders Medication Instructions Recorded Confirmed Omeprazole [PriLOSEC] 20 mg PO BID 11/17/20 08/28/23 Aspirin [Aspirin EC] 81 mg PO DAILY 11/18/20 08/28/23 Rosuvastatin Calcium [Crestor] 40 mg PO DAILY 11/18/20 08/28/23 Prednisone [Alicia] 10 mg PO DAILY PM 07/10/23 08/28/23 Cholecalciferol (Vitamin D3) 1 tab PO DAILY 08/28/23 08/28/23 [Vitamin D3] Leucovorin Calcium 20 mg PO Q6HR 3 Days #24 tablet 08/28/23 Magic Mouthwash 30 ml PO Q4H #120 ml 08/28/23 Methotrexate [Methotrexate Sodium] 2.5 mg PO UD 08/28/23 08/28/23 Metoprolol Succinate [Toprol Xl] 25 mg PO DAILY 08/28/23 08/28/23 - Allergies Allergies/Adverse Reactions: Allergies Allergy/AdvReac Type Severity Reaction Status Date / Time adhesive tape Allergy Rash Verified 08/28/23 19:43 latex Allergy Hives Verified 08/28/23 19:43 Penicillins Allergy Hives Verified 08/28/23 19:43 Sulfa (Sulfonamide Allergy Unknown Verified 08/28/23 19:43 Antibiotics) - Social History Does the pt smoke?: No Smoking Status: Never smoker Does the pt drink ETOH?: Yes Does the pt have substance abuse?: No - Immunizations Immunizations are current?: Yes - POLST Patient has POLST: No PD ED PE NORMAL - Vitals Vital signs reviewed: Yes - General General: Alert and oriented X 3, No acute distress, Well developed/nourished - HEENT HEENT: Atraumatic, Other - Neck Neck: No bony TTP - Cardiac Cardiac: RRR, No murmur, Strong equal pulses - Respiratory Respiratory: No respiratory distress, Clear bilaterally - Abdomen Abdomen: Normal bowel sounds, Non tender - Derm Derm: Warm and dry, No rash, Other (flushed fase) - Extremities Extremities: No deformity, No tenderness to palpate, No edema - Neuro Neuro: Alert and oriented X 3, development officer 2-12 intact, No motor deficit, No sensory deficit, Normal speech Eye Opening: Spontaneous Motor: Obeys Commands Verbal: Oriented GCS Score: 15 - Psych Psych: Normal mood, Normal affect Results - Vitals Vitals: Vital Signs - 24 hr 08/28/23 08/28/23 08/28/23 19:16 19:51 21:30 Temperature 35.7 C L Heart Rate 42 L 65 53 L Respiratory 16 12 12 Rate Blood Pressure 133/61 H 118/59 L 109/71 O2 Saturation 99 98 97 08/28/23 08/28/23 23:00 23:22 Temperature Heart Rate 53 L 52 L Respiratory 16 15 Rate Blood Pressure 118/65 O2 Saturation 99 99 Oxygen O2 Source Room air - EKG (time done) 2046 EKG releavant findings:: EKG personally interpreted by author of this note. Relevant findings are: Rate: Rate (enter#) (66) Rhythm: NSR [place]: LAD Intervals: LBBB Ischemia: Normal ST segments Computer interpretation: Agree with computer - Labs Labs: Laboratory Tests 08/28/23 08/28/23 20:33 20:33 WBC 7.2 RBC 5.00 Hgb 14.9 Hct 42.5 MCV 85.0 MCH 29.8 MCHC 35.1 RDW 12.7 Plt Count 126 L MPV 11.4 Neut # (Auto) 5.7 Lymph # (Auto) 1.4 L [place] # (Auto) 0.0 Eos # (Auto) 0.0 Baso # (Auto) 0.0 Absolute Nucleated RBC 0.00 Nucleated RBC % 0.0 Sodium 137 Potassium 4.0 Chloride 106 Carbon Dioxide 24 Anion Gap 7.0 BUN 26 H Creatinine 0.8 Estimated GFR (MDRD) 99 Glucose 111 H Calcium 9.5 Magnesium 1.7 Total Bilirubin 2.9 H AST 20 ALT 27 Alkaline Phosphatase 45 Total Protein 6.5 Albumin 4.3 Globulin 2.2 Albumin/Globulin Ratio 2.0 PD Medical Decision Making - ED course ED course: 58-year-old male presents emergency department for accidental methotrexate overdose. I spoke with poison control at great length with pharmacist as well as product development director about patient's symptoms plan is to start patient on Leucorva 20 mg 3 times a day, every 6 hours, for 3 days. Patient has multiple sores throughout his mouth resulting in mucositis so he was also started on Magic mouthwash. Labs are actually found to be overall quite reassuring, product development director and pharmacist are reassured by these labs not requiring any hospitalization. His weekly count is elevated at 126 lymphocytes slightly suppressed at 1.4 BUN elevated at 26 and bilirubin elevated at 2.9. He does have scleral icterus no confusion and his liver enzymes are within normal limits. He was given a liter of IV fluids to help with his MORE. Prescription of Leucorva and Magic mouthwash was sent to his preferred pharmacy. Patient told he needed to have his labs reevaluated in 3 days. Methotrexate level was sent out and will take several days to result and poison control we watching for this. Patient told to follow-up with his ceramics test engineer as to when he should reinitiate his methotrexate but to hold off until he is able to follow-up with his ceramics test engineer. He has no chest pain or shortness of breath no other emergent symptoms at this point time he is safe for discharge all questions answered to him and his and his labs are also given to his . Return precautions given. Departure - Departure Disposition: 01 Home, Self Care Clinical Impression: Mucositis Accidental methotrexate overdose Qualifiers: Encounter type: initial encounter Qualified Code(s): T45.1X1A - Poisoning by antineoplastic and immunosuppressive drugs, accidental (unintentional), initial encounter Instructions: Mucositis Manage Ch Prescriptions: Leucovorin Calcium 20 mg PO Q6HR 3 Days #24 tablet Magic Mouthwash 30 ml PO Q4H #120 ml Comments: Thank you for trusting us with your care. As we discussed we are very reassured by your labs. I spoke with product development director as well as pharmacist with poison control and they are recommending you take Leucorvin every 6 hours (4 times a day) for the next 3 days starting tomorrow. I have sent a prescription to [facility] in [place] for you to picking supervisor first thing tomorrow morning. I have also sent a prescription of Magic mouthwash she will take 30 mL gargle you will not swallow and then spit. You can also do some salt water rinses to help with the mouth sores that you are experiencing. Eat a soft bland diet to help with your mouth recovering from the sores that you are experiencing. You can alternate between Tylenol and ibuprofen for any pain and discomfort of your mouth. Please follow-up with your ceramics test engineer to see if it is warranted for you to restart the methotrexate and when they think it is safe to restart the methotrexate. Please come back to the emergency department for having any worsening symptoms, unable to keep the Leucorvin down or any other concerning symptoms. Wishing you a speedy recovery. Forms: PCP List Discharge Date/Time: 08/28/23 23:24
[2023-08-28 20:50] LABS: BASOPHILS % (AUTO) 0.4 %; EOSINOPHILS % (AUTO) 0.6 %; HCT - HEMATOCRIT 42.5 % (42.0-52.0); HGB - HEMOGLOBIN 14.9 g/dL (14.0-18.0); LYMPHOCYTES # (AUTO) 1.4 10^3/uL (1.5-3.5); LYMPHOCYTES % (AUTO) 19.3 %; MEAN CORPUSCULAR HEMOGLOBIN 29.8 pg (27.0-31.0); MEAN CORPUSCULAR HGB CONC 35.1 g/dL (32.0-36.0); MEAN PLATELET VOLUME 11.4 fL (7.4-11.4); MONOCYTES % (AUTO) 0.4 %; NEUTROPHILS # (AUTO) 5.7 10^3/uL (1.5-6.6); PLT - PLATELET COUNT 126 10^3/uL (130-450); RED CELL DISTRIBUTION WIDTH 12.7 % (12.0-15.0); WHITE BLOOD COUNT 7.2 x10^3/uL (4.8-10.8)
[2023-08-28 20:59] LABS: ALBUMIN 4.3 g/dL (3.2-5.5); BILIRUBIN,TOTAL 2.9 mg/dL (0.2-1.0); CALCIUM 9.5 mg/dL (8.5-10.3); CREATININE 0.8 mg/dL (0.6-1.3); MAGNESIUM 1.7 mg/dL (1.7-2.3); TOTAL PROTEIN 6.5 g/dL (6.4-8.9)
[2023-08-28] MEDS: SODIUM CHLORIDE 0.9% 1,000 ML IV ONE (22:15)
[2023-08-28] MEDS: MAGIC MOUTHWASH 120 ML BOTTLE PO STA (22:40)
[2023-08-28] MEDS: LIDOCAINE VISCOUS 2% 15 ML ORAL SYRINGE MM STA (22:42)
[2023-08-28] MEDS: LEUCOVORIN CALCIUM IV STA (22:53)
[2023-08-28 23:14] VITALS: BP 118/65; O2SAT 99
== END 2023-08-28 23:24 | disposition home or self-care (01) ==
LOC: ED 19:11
DX: T45.1X1A Poisoning by antineoplastic and immunosuppressive drugs, accidental (unintentional), initial encounter (principal); K12.30 Oral mucositis (ulcerative), unspecified
CPT/HCPCS: 36415; 80053; 81599; 83735; 85025; 93005; 96360; 99284

== ENCOUNTER 2023-08-30 09:07 | Outpatient (CLI) | payer OTHER | END 2023-08-30 23:59 | disposition short-term general hospital (02) | LOC: EMS 09:07 | DX: R13.10 Dysphagia, unspecified (principal); I44.7 Left bundle-branch block, unspecified; R00.8 Other abnormalities of heart beat; T45.1X1A Poisoning by antineoplastic and immunosuppressive drugs, accidental (unintentional), initial encounter | CPT/HCPCS: A0425; A0429 ==

== ENCOUNTER 2023-10-06 07:22 | Outpatient (CLI) | payer OTHER ==
--- NOTE | 2023-10-06 14:05 | CT Report ---
PROCEDURE: Thoracic Spine WO INDICATIONS: COMPRESSION FX THORACIC TECHNIQUE: Noncontrast 3 mm thick sections acquired through the region of interest in the thoracic spine. Sagit jean and coronal reformats were then constructed. For radiation dose reduction, the following was used : automated exposure control, adjustment of mA and/or kV according to patient size. COMPARISON: MRI lumbar spine 10/06/2023, MRI thoracic spine 01/15/2015 , CT chest 08/01/2021. FINDINGS: Image quality: Excellent. Bones: There is normal overall bony alignment. No acute vertebral body compression fractures. Sligh t appearance of anterior wedge deformity is present T12 appearing chronic. Multilevel Schmorl's nodes are normal along the endplates most prominent in the lower thoracic spine as previously identified. No suspicious sclerotic or lytic bony lesions. Central spinal canal is of normal overall caliber in the thoracic spine. Mild spinal stenosis is present at L2-3, L3. Multilevel scattered minimal to mild disc desiccation as well as minimal scattered anterior 2 points.. Soft tissues: No paravertebral masses or hematomas. Visualized posteromedial lungs appear clear. IMPRESSION: Mild appearance of anterior wedge deformity at T12 overall appearing chronic. If concern persists, MR I may be obtained. Reviewed by: Madison Garcia MD on 10/06/2023 2:04 PM PDT Approved by: Madison Garcia MD on 10/06/2023 2:04 PM PDT Station ID: [id number]
== END 2023-10-06 07:23 | disposition home or self-care (01) ==
LOC: DI 07:22
PROVIDERS: ATTEND Psychiatry & Neurology Neurology
DX: Z13.820 Encounter for screening for osteoporosis (principal); S22.000A Wedge compression fracture of unspecified thoracic vertebra, initial encounter for closed fracture

== ENCOUNTER 2023-12-07 07:47 | Outpatient (CLI) | payer OTHER ==
--- NOTE | 2023-12-07 16:16 | MRI Report ---
PROCEDURE: MRI cervical spine without contrast INDICATIONS: CERVICAL SPINE FUSION MYELOPATHY TECHNIQUE: Multiplanar multisequential MRI of the cervical spine was obtained without contrast. COMPARISON: CT cervical spine 08/01/2021 FINDINGS: Alignment and Curvature: There is normal bony alignment. Bone Marrow: C6-7 interbody fusion without instrumentation. Good graft incorporation. Spinal Cord: Visualized spinal cord has normal size and signal. No cerebellar tonsillar herniation. Paraspinal Soft Tissues: No paravertebral masses. Prevertebral soft tissues are normal in thickness . C2-C3: Central posterior disc osteophyte complex touches the ventral surface cord results in mild ce ntral stenosis. No cord indentation. No foraminal stenosis C3-C4: Disc space narrowing posterior disc osteophyte complex results in mild central stenosis. Mode rate right and no left foraminal stenosis. C4-C5: Disc space narrowing with central posterior disc osteophyte complex. Mild to moderate central stenosis. No foraminal stenosis. C5-C6: Disc space narrowing posterior disc osteophyte complex results in mild to moderate central st enosis. No foraminal stenosis. C6-C7: Discectomy and fusion with good graft incorporation. Posterior osteophyte results in mild amara tral stenosis. There is focal cord atrophy and increased signal gliosis or myelomalacia. No foraminal stenosis. C7-T1: Normal in appearance. IMPRESSION: Multilevel degenerative disc disease and arthropathy results in varying degrees of central and forami nal stenosis including mild to moderate central stenosis C4-5 and C5-6. No significant foraminal sten osis throughout the exam Interbody fusion C6-7 without instrumentation is associated with focal cord atrophy and myelomalacia Reviewed by: Jose Alejandro Davison MD on 12/07/2023 3:15 PM AKDT Approved by: Jose Alejandro Davisno MD on 12/07/2023 3:15 PM AKDT Station ID: [id number]
== END 2023-12-07 07:48 | disposition home or self-care (01) ==
LOC: DI 07:47
PROVIDERS: ATTEND Family Medicine
DX: M50.31 Other cervical disc degeneration, high cervical region (principal); M48.02 Spinal stenosis, cervical region; M47.812 Spondylosis without myelopathy or radiculopathy, cervical region; Z98.1 Arthrodesis status; G95.89 Other specified diseases of spinal cord